=== PATIENT | female | born 1945 | race Two or more races ===

== ENCOUNTER 2018-12-31 12:58 | Emergency (ER) | payer OTHER, MEDICAID | END 2018-12-31 14:56 | disposition home or self-care (01) ==

== ENCOUNTER 2019-02-07 11:10 | Inpatient (IN) | payer OTHER, MEDICAID ==
--- NOTE | 2019-02-07 11:14 | EDPHY ---
HPI/HX/ROS/PE/MDM Narrative: CHIEF COMPLAINT: Abnormal labs at facility, reported hypoxemia HPI: This patient is a 73-year-old female with past medical history including Alzheimer's dementia, COPD, diabetes, hyperlipidemia, and hypertension. She arrives today via EMS from assisted living after staff reported her SpO2 had dropped to the 50s. She usually wears 3L O2 at all times for COPD. Hypoxemia was not observed by EMS and patient has maintained adequate oxygen saturations since their arrival. Staff also reported abnormal lab values, possibly a BNP around 630. Per EMS, vitals were within normal limits in transport. The patient did seem congested, and a DuoNeb was administered by facility this morning. The patient complains of complains of left calf pain radiating to her back. She denies any difficulty breathing more than usual. She has history of PE and takes daily ASA but is not otherwise anticoagulated. She is unable to answer some of my direct questions including whether she has had any dark tarry stools lately. She does not tell me any other complaints at this time. HPI somewhat limited due to patient's dementia, unable to answer some questions appropriately. REVIEW OF SYSTEMS: A comprehensive 10 system review of systems is otherwise negative aside from elements mentioned in the history of present illness and medical decision making. PMH: Dementia (risperidone), COPD (3L O2), diabetes type 2 (Metformin), hyperlipidemia (statin), hypokalemia, hypertension (Lisinopril), chronic pain, failure to thrive, PE SOCIAL HISTORY: Lives at [facility]. Retired. PHYSICAL EXAM: General:Patient is alert, in no acute distress. ENT:Eyes are normal to inspection. ENT inspection normal. Neck: Normal inspection. Full range of motion. Respiratory: Diffuse inspiratory and expiratory wheezes Cardiovascular: Regular rate and rhythm. Strong peripheral pulses. Normal cap refill. Abdomen:The abdomen is nontender to palpation. There are no peritoneal signs. There are normal bowel sounds. Back: Normal to inspection. No tenderness to palpation. Skin: Normal color. No rash. Warm and dry. Extremities: 2+ edema bilaterally. Full range of motion. Neuro: Oriented x3. Normal motor function. Normal sensory function. ED Course: 11:10 Met EMS on arrival 73 y/o female with PMH including COPD, dementia, hyperlipidemia, hypertension arrives for evaluation of reported hypoxemia and possible elevated BNP. She complains of her chronic back pain, but is otherwise asymptomatic. Vitals are within normal limits here in the emergency department, SpO2 is 95% on her usual 3L of oxygen. Plan for EKG, chest x-ray, labs including CBC, chemistries, BNP, POC troponin. Patient additionally complains of left calf pain radiating to her back. Plan for US LLE to r/o DVT. PMH reviewed including ED visit 12/31/18 for similar complaints - she was reportedly in respiratory distress by the facility, but had normal presentation and workup here in the emergency department. CXR available for comparison. 11:27 EKG was ordered and interpreted by myself. Please see iMER system for official reading. Sinus rhythm. 11:30 Reviewed laboratory results. POC troponin 0.14. Plan for laboratory troponin for comparison. WBC elevated at 45,000 ( compared to 10,000 one month ago). Patient is anemic, hematocrit of 28 (compared to 36 one month ago). BNP 970. Chest x-ray shows increased peribronchial thickening suggesting bronchitis vs less likely mild fluid overload. Increased right basilar opacity, could be related to worsening atelectasis or pneumonia. See radiologist report for details. 12:00 Plan for CTA chest. 12:[address] Cook, radiologist. US LLE is negative for DVT. Spoke with Dr. Piña, radiologist. CTA chest is negative for PE. Evidence of volume overload. Plan to admit for leukocytosis, anemia. 15:[address] Albert, hospitalist. He accepts admission. - Data Points Imaging Results: Imaging Impressions Chest X-Ray 02/07/19 11:13 Impression: Increased peribronchial thickening suggesting bronchitis or less likely mild fluid overload with increased right basilar opacity that could be related to worsening atelectasis or pneumonia Extremity Venous Study 02/07/19 12:00 Impression: No deep vein thrombosis in the left lower extremity. Results discussed with Dr. Dar Delgado 12:28 PM. Imaging: Discussed imaging studies w/ on call pharmacy technician Radiologist, I viewed and interpreted images myself Laboratory Results: Laboratory Results 02/07/19 11:10 02/07/19 11:10 02/07/19 02/07/19 02/07/19 12:10 11:21 11:10 WBC RBC Hgb Hct MCV MCH MCHC RDW Plt Count MPV Neut % (Auto) Lymph % (Auto) [place] % (Auto) Eos % (Auto) Baso % (Auto) Nucleat RBC Rel Count Absolute Neuts (auto) Absolute Lymphs (auto) Absolute Monos (auto) Absolute Eos (auto) Absolute Basos (auto) Absolute Nucleated RBC Immature Gran % Seg Neutrophils % Band Neutrophils % Lymphocytes % Monocytes % Eosinophils % Basophils % Metamyelocytes % Myelocytes % Promyelocytes % Blast Cells % Immature Gran # Absolute Seg Neuts Absolute Band Neuts Absolute Lymphocytes Absolute Monocytes Absolute Eosinophils Absolute Basophils Absolute Metamyelocyte Absolute Myelocytes Absolute Promyelocytes Absolute Plasma Cells Nucleated RBCs Absolute Blast Cells Plasma Cells % Platelet Estimate Polychromasia Oval Macrocytes Smear Review By Sodium 139 mEq/L mEq/L (135-145) Potassium 5.1 mEq/L mEq/L (3.5-5.2) Chloride 100 mEq/L mEq/L (97-110) Carbon Dioxide 36 mEq/l H mEq/l (22-31) Anion Gap 3 mEq/L L mEq/L (6-14) BUN 27 mg/dL H mg/dL (7-23) Creatinine 0.6 mg/dL mg/dL (0.6-1.0) Estimated GFR > 60 Glucose 92 mg/dL mg/dL (70-100) Calcium 8.5 mg/dL mg/dL (8.5-10.4) POC Troponin I 0.14 ng/mL H ng/mL (0.00-0.08) NT-Pro-B Natriuret Pep 970 pg/mL H pg/mL (0-125) Specimen Hemolysis 120 Patient ABO/Rh A POSITIVE Antibody Screen NEGATIVE 02/07/19 11:10 WBC 45.62 10^3/uL H 10^3/uL (3.80-9.50) RBC 2.68 10^6/uL L 10^6/uL (4.18-5.33) Hgb 9.0 g/dL L g/dL (12.6-16.3) Hct 28.1 % L % (38.0-47.0) MCV 104.9 fL H fL (81.5-99.8) MCH 33.6 pg pg (27.9-34.1) MCHC 32.0 g/dL L g/dL (32.4-36.7) RDW 14.0 % % (11.5-15.2) Plt Count 319 10^3/uL 10^3/uL (150-400) MPV 11.4 fL fL (8.7-11.7) Neut % (Auto) Not Reported Lymph % (Auto) Not Reported [place] % (Auto) Not Reported Eos % (Auto) Not Reported Baso % (Auto) Not Reported Nucleat RBC Rel Count Not Reported Absolute Neuts (auto) Not Reported Absolute Lymphs (auto) Not Reported Absolute Monos (auto) Not Reported Absolute Eos (auto) Not Reported Absolute Basos (auto) Not Reported Absolute Nucleated RBC Not Reported Immature Gran % Not Reported Seg Neutrophils % 8.9 % % Band Neutrophils % 2.0 % % Lymphocytes % 3.9 % % Monocytes % 3.0 % % Eosinophils % 82.2 % % Basophils % 0.0 % % Metamyelocytes % 0.0 % % Myelocytes % 0.0 % % Promyelocytes % 0.0 % % Blast Cells % 0.0 % % Immature Gran # Not Reported Absolute Seg Neuts 4.06 10^3/uL 10^3/uL (1.70-6.50) Absolute Band Neuts 0.91 10^3/uL H 10^3/uL (0.00-0.70) Absolute Lymphocytes 1.78 10^3/uL 10^3/uL (1.00-3.00) Absolute Monocytes 1.37 10^3/uL H 10^3/uL (0.30-0.80) Absolute Eosinophils 37.50 10^3/uL H 10^3/uL (0.03-0.40) Absolute Basophils 0.00 10^3/uL L 10^3/uL (0.02-0.10) Absolute Metamyelocyte 0.00 10^3/mL 10^3/mL (0.00-0.00) Absolute Myelocytes 0.00 10^3/mL 10^3/mL (0.00-0.00) Absolute Promyelocytes 0.00 10^3/uL 10^3/uL (0.00-0.00) Absolute Plasma Cells 0.00 10^3/uL 10^3/uL (0.00-0.00) Nucleated RBCs 0 /100 WBC /100 WBC (0-0) Absolute Blast Cells 0.00 10^3/uL 10^3/uL (0.00-0.00) Plasma Cells % 0.0 % % Platelet Estimate ADEQUATE (ADEQ) Polychromasia 1+ H Oval Macrocytes 1+ H Smear Review By Pending Sodium Potassium Chloride Carbon Dioxide Anion Gap BUN Creatinine Estimated GFR Glucose Calcium POC Troponin I NT-Pro-B Natriuret Pep Specimen Hemolysis Patient ABO/Rh Antibody Screen Point of Care Test Results: Chemistry 02/07/19 11:21 POC Troponin I 0.14 ng/mL H ng/mL (0.00-0.08) General Initial Vital Signs: Initial Vital Signs Heart Rate 88 02/07/19 11:15 Respiratory Rate 16 02/07/19 11:15 Blood Pressure 136/76 H 02/07/19 11:15 O2 Sat (%) 95 02/07/19 11:15 O2 Delivery Mode Nasal Cannula O2 (L/minute) 3 Allergies/Adverse Reactions: Opioids - Morphine Analogues Allergy (Verified 02/07/19 11:15) Home Medications: Medication Instructions Recorded Acetaminophen [Tylenol ES 500 mg 100 mg PO TID 12/31/18 (*)] Albuterol [Proventil Neb] 3 ml IH Q4HRS PRN 12/31/18 Aspirin [Aspirin 81mg (*)] 81 mg PO DAILY 12/31/18 Atorvastatin Calcium [Lipitor 40 40 mg PO DAILY 12/31/18 mg (*)] Citalopram Hydrobromide [celeXA 10 10 mg PO DAILY 12/31/18 MG] Lisinopril [Zestril 20 mg (*)] 20 mg PO DAILY 12/31/18 metFORMIN HCL [Glucophage 500 mg 250 mg PO DAILY 12/31/18 (*)] risperiDONE [Risperdal 1mg (*)] 1.5 mg PO DAILY 12/31/18 Docusate Sodium [Colace 100 MG (*)] 100 mg PO BID 02/07/19 Ipratropium/Albuterol [Duoneb (*)] 3 ml IH Q8HRS 02/07/19 Lidocaine 4%/Menthol 1% [Icy Hot 1 patch TD DAILY 02/07/19 Lidocaine/Menthol 4%/1% Patch (*)] Departure - Departure Disposition: [facility] Clinical Impression: Leukocytosis Qualifiers: Leukocytosis type: unspecified Qualified Code(s): D72.829 - Elevated white blood cell count, unspecified Anemia Qualifiers: Anemia type: unspecified type Qualified Code(s): D64.9 - Anemia, unspecified Condition: Fair Report Scribed for: Dar Delgado Report Scribed by: Kendy Salazar Date of Report: 02/07/19 Time of Report: 11:30 Physician Review and Approval Statement: Portions of this note were transcribed by an ED scribe. I personally performed the history, physical exam, and medical decision making; and confirm the accuracy of the information in the transcribed note.
[2019-02-07 11:31] LABS: PLATELET COUNT 319 10^3/uL (150-400)
[2019-02-07] MEDS ORDERED: IOPAMIDOL (ISOVUE 370) 100 ML BTL IV ONE (12:11)
[2019-02-07] MEDS ORDERED: ONDANSETRON DISINTEGRATING 4 MG TAB PO PRN (15:53)
[2019-02-07] MEDS ORDERED: ONDANSETRON 4 MG/2 ML VIAL IVP PRN (15:53)
--- NOTE | 2019-02-07 16:39 | PDCONSULT ---
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 She does not have historical information obtained from daughter that would suggest she would be at risk for parasitic infection. Although she has periodically been on prednisone for asthma and/or COPD diagnosis, Strongyloides hyper infection syndrome is typically associated with an absence or only a mild eosinophilia as the corticosteroids are pulled and suppressant of the eosinophilia stimulus. Her history of having lived in [place], although not the traditional Coccidioides geographic risk area, places her at low risk for having Coccidioides infection in reactivation, although again this is typically associated with a mild eosinophilia and a stimulus for reactivation is often immune suppression; corticosteroids would be expected to suppress this robust of any eosinophilic response. The development of eosinophilia is acute as her most recent normal eosinophil count was on 11/18/2018 and her 1st abnormal eosinophil count was seen on 2018. 1. 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 Dementia 7. History of asthma/COPD Plan: 1. No indication to send diagnostic testing for parasitic infections 2. When not initiate systemic antimicrobials at this time 3. Infectious diseases will follow Gaudencio Ramos MD Infectious Diseases Chief Complaint: Hypereosinophilia Requesting Provider: Dr. Albert Reason for Referral: Consultation was requested by Dr. Albert regarding antimicrobial management. HPI: 73-year-old woman who was sent to the hospital from her care home, [facility] in [place], due to critical lab value abnormalities with a white blood cell count of greater than 30,000 and an elevated BNP. Call to the care home staff not revealing of meaningful historical information, nurse on the floor uncertain of how long it has been since she has been treated with prednisone, but does know it has not been in the last few days. Discussion with patient's daughter over the phone reveals that the patient has had a poor appetite over the past few weeks but no other complaints. Patient states that she has had some chills and possibly fever but no night sweats. She has not had any rashes. She does state she has abdominal discomfort but not pain. No diarrhea associated with this abdominal discomfort. She primarily has chest discomfort over the center of her chest. No cough, arthralgias, myalgias. She states that her legs have been sore from the knees down but feels like this is chronic and related to swelling. She had a headache this morning but otherwise has not had headaches. States that there are no animals that visit the residence at her care home. Reviewed patient medical records in [facility], [place], and [facility] Travel history: Never traveled outside the [facility] Past Medical History: Dementia, asthma/COPD requiring supplemental oxygen support Past Surgical History: None stated Social History: Does not use tobacco products; Does not consume marijuana products; no alcohol use; Does not use any other drugs currently or in the past ; born and raised in the [facility]; lived in [facility] and [facility] for a total of a year more than 30 years ago Family History: Daughter recently diagnosed with cancer Allergies: No known antibiotic allergies Medications: Reviewed in medical record. ROS: 10 organ systems reviewed; pertinent positives and negatives listed in the HPI, all other organ systems negative. Physical Exam: VS: Reviewed Gen: No acute distress; Breathing comfortably with supplemental oxygen via nasal cannula; Able to speak in complete sentences Eyes: No conjunctival injection; No scleral icterus HENT: No gross deformities Neck: No limitation in range of motion Pulm: Audible inspiratory sounds to the bases bilaterally; No wheeze; diffuse rales CV: Normal S1 and S2, 3/6 systolic murmur and presence of gallop; Regular rate and rhythm; No rubs; mild to moderate bilateral lower extremity edema, pitting Abd: Not distended; Normo-active bowel sounds; Soft; Non-tender Skin: A full skin exam including exposed bilateral upper extremities, bilateral lower extremities to the knees, face, neck, abdomen, chest, and back performed; Skin intact, warm, with no rash MSK: Joints without erythema or edema; No gross limitation in range of motion; bilateral prosthetic knee replacement scars, intact Ext: No clubbing or cyanosis Neuro: Awake and alert; oriented to self, disoriented to location and day of week Psych: Normal mood and affect Labs/Imaging: All microbiology testing (culture and non-culture) reviewed in the medical record. Personally reviewed and interpreted the images of the following radiographs: Chest CT showing ground-glass opacity, primarily in the bilateral upper lobes with right-sided pleural effusion, left basilar infiltrates without consolidation. Laboratory Tests 02/07/19 02/07/19 02/07/19 11:10 11:10 11:10 WBC 45.62 H Hgb 9.0 L Plt Count 319 Absolute Seg Neuts 4.06 Absolute Band Neuts 0.91 H Absolute Monocytes 1.37 H Absolute Eosinophils 37.50 H Creatinine 0.6 NT-Pro-B Natriuret Pep 970 H Albumin 2.8 L Ongoing monitoring for antimicrobial toxicity with: CBC, BMP, interval historical information, and interval physical exam. [id number] time with patient: 65 minutes with >50% of [id number] time spent in counseling, patient education, and coordinating care. Counseling provided included the microbiology of infectious causes of eosinophilia, expected time to resolution, natural history without treatment, and side effects of treatment. Discussed with patient's daughter by telephone and obtained historical information. Discussed with patient's care home care team obtaining historical information.
--- NOTE | 2019-02-07 17:19 | GHP ---
[f rep st] HISTORY AND PHYSICAL DATE OF ADMISSION: 02/07/2019 CHIEF COMPLAINT: Sent in from [facility]. HISTORY OF PRESENT ILLNESS: This is a 73-year-old female, who resides at a [facility]. Per report, she was sent to the emergency department for further evaluation because they found her pulse ox to show 50%. Per EMS, as well as evaluation here, she has not been hypoxic. She tells me that she has had a cough recently. She feels short of breath chronically, she does not think worse. She notes that her legs seem to be more swollen recently than before. She has no real new neurologic symptoms that I can elicit including no incontinence. She has chronic weakness in her legs, which I do not believe is new, although history is overall difficult given her dementia. She has not traveled recently, and tells me that she has never been out of the country. She has lived her entire life in [place]. She has had no recent fevers, no overall change in her constitutional status. She reports no new rash. She does report some nasal congestion. She has some chronic nausea. No recent diarrhea or changes in stool. She reports no changes in her medications. PAST MEDICAL/SURGICAL HISTORY: 1. Alzheimer's. 2. COPD with chronic respiratory failure on 3 L of oxygen. 3. Hyperlipidemia. 4. Hypertension. 5. Chronic pain. 6. History of a pulmonary embolus. Now on aspirin. 7. Left TKA. 8. GERD. MEDICATIONS: Please see medication reconciliation. ALLERGIES: Morphine analogs. FAMILY HISTORY: Reviewed and noncontributory. SOCIAL HISTORY: She resides at a [facility], [place], although she did not recall this. She tells me she does not smoke currently and does not drink. REVIEW OF SYSTEMS: A 10-point review of systems is conducted and is negative except per HPI. PHYSICAL EXAM: VITAL SIGNS: Blood pressure 157/79, heart rate 83, respiration rate 20, saturating 96% on 3 L. Temperature is 36.8. GENERAL: Ms. Trimble is a pleasant female, who looks slightly uncomfortable, and is notably kyphotic. HEENT: Shows it to be normocephalic, atraumatic. CARDIOVASCULAR: Regular rate and rhythm. No murmurs, rubs, or gallops. She has 1 to 2+ bilateral lower extremity edema. PULMONARY: Shows bilateral rales, most prominent in the bases. ABDOMEN: Soft. She is tender to palpation in the left upper quadrant. She has no rebound or guarding tenderness. SKIN: Shows no rash. : No [place]. NEUROLOGIC: Shows her to be alert and oriented times approximately 3. EXTREMITIES: In her lower extremities, she has diminished strength throughout. It seems to be symmetric bilaterally. It seems to be somewhat limited by her back pain. PSYCHIATRIC: Shows normal mood and affect. LABS: White count is 45,000 with an absolute eosinophil count of 37,000, hemoglobin is 9, her MCV is 104, platelets are 319. INR is pending. LFTs are normal. Her bicarb is 36,000. BNP is 970. Troponin 0.14. Albumin is 2.8. DATA REVIEWED: 1. Discussed with doctors Jose Miguel Lerma, and Mina. 2. I reviewed her lower extremity ultrasound that shows no DVT. 3. I reviewed her CT angiogram of her chest. This shows pulmonary edema, possible left upper lobe infiltrate, multiple compression fractures with some spinal canal stenosis, no pulmonary embolus. 4. ECG shows sinus rhythm. She has left axis deviation. ASSESSMENT/PLAN: 1. Markedly eosinophilia: Given the degree of eosinophilia, this likely represents a primary myeloid process or a medication effect. However, also considered are eosinophilic myocarditis and pneumonia. 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 Hematology has been consulted and plans to do a bone marrow biopsy. Cardiology has been consulted, given her new congestive heart failure. I will order an echocardiogram and trend her troponins. Additional studies which I have ordered include an ANCA, immunoglobulins, respiratory PCR, tryptase, vitamin B12. She is currently clinically stable, thus I do not believe that emergent treatment is necessary. Treatment for all of her many hypereosinophilic syndromes is steroids and these could be considered emergently, however it would be best to obtain diagnostic studies prior. Infectious Disease will also evaluate her for potential parasitic infections, care would need to be given if there is any concern for Strongyloides in the setting of giving her high-dose steroids. I have ordered a CT abdomen to look for splenomegaly as she does have tenderness in the left upper quadrant. Dr. Boggs with pulmonology has been consulted as well, and he would like to perform a bronchoscopy tomorrow. Again, ideally, we will obtain all diagnostic studies prior to starting treatment, but if she becomes unstable at all, would have a low threshold to start steroids. 2. Multiple compression fractures. Given the clinical difficulty with her exam , I have ordered a lumbar spine MRI. 3. Dementia. This overall complicates her treatment. 4. Chronic obstructive pulmonary disease, chronic respiratory failure. Continue her on DuoNeb and home oxygen. 5. Diabetes mellitus. She is on metformin. I will hold this given that medications need to be considered in the etiology of this. 6. Chronic pulmonary embolus. Will start her on prophylaxis any and all procedures have been accomplished. 7. Code status. She has a MOLST form which shows full code. /[id number]/MODL MTDD
--- NOTE | 2019-02-07 17:23 | PDCARCONS ---
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 Chief Complaint: Brought to the emergency department for probable hypoxemia. Requesting Physician: Dr. Ricardo Albert. History of Present Illness: This is a 73-year-old female currently a detention resident due to advanced dementia who was brought to the emergency department when she was noted to be hypoxemic. On arrival to the emergency department she was apparently stable on her usual 3 liters/minute oxygen rate. As part of her workup in the emergency department a CBC was drawn. This indicated significant eosinophilia. The patient also had associated lower extremity edema and an abnormal chest x-ray with a brain atretic peptide of about 900 mg/dL. 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 In talking to the patient she states that she is not short of breath. She has no orthopnea. She denies chest pain or chest pressure. A history is, however, very difficult to obtain given her dementia. History Information - Allergies/Home Medication List Allergies/Adverse Reactions: Opioids - Morphine Analogues Allergy (Verified 02/07/19 11:15) Home Medications: Acetaminophen [Tylenol ES 500 mg (*)] 100 mg PO TID 12/31/18 [Last Taken Unknown ] Albuterol [Proventil Neb] 3 ml IH Q4HRS PRN 12/31/18 [Last Taken Unknown] Aspirin [Aspirin 81mg (*)] 81 mg PO DAILY 12/31/18 [Last Taken Unknown] Atorvastatin Calcium [Lipitor 40 mg (*)] 40 mg PO DAILY 12/31/18 [Last Taken Unknown] Citalopram Hydrobromide [celeXA 10 MG] 10 mg PO DAILY 12/31/18 [Last Taken Unknown] Lisinopril [Zestril 20 mg (*)] 20 mg PO DAILY 12/31/18 [Last Taken Unknown] metFORMIN HCL [Glucophage 500 mg (*)] 250 mg PO DAILY 12/31/18 [Last Taken Unknown] risperiDONE [Risperdal 1mg (*)] 1.5 mg PO DAILY 12/31/18 [Last Taken Unknown] Docusate Sodium [Colace 100 MG (*)] 100 mg PO BID 02/07/19 [Last Taken Unknown] Ipratropium/Albuterol [Duoneb (*)] 3 ml IH Q8HRS 02/07/19 [Last Taken Unknown] Lidocaine 4%/Menthol 1% [Icy Hot Lidocaine/Menthol 4%/1% Patch (*)] 1 patch TD DAILY 02/07/19 [Last Taken Unknown] I have personally reviewed and updated: family history, medical history, social history, surgical history Past Medical History: COPD with chronic hypoxemia, Alzheimer's disease, hyperlipidemia, hypertension, history of pulmonary hypertension prior pulmonary embolism, GERD. - Surgical History Reports: no pertinent surgical hx - Family History Positive for: non-pertinent - Social History Smoking Status: Former smoker Alcohol Use: None Drug Use: None Additional social history: She is a resident [facility]. Physical Exam Physical Exam: Temp Pulse Resp BP Pulse Ox 36.8 C 83 20 157/79 H 96 02/07/19 16:04 02/07/19 16:04 02/07/19 16:04 02/07/19 16:04 02/07/19 16:04 Constitutional: no apparent distress, appears nourished, not in pain Eyes: PERRL, anicteric sclera, EOMI Ears, Nose, Mouth, Throat: moist mucous membranes, hearing normal, ears appear normal, no oral mucosal ulcers Cardiovascular: regular rate and rhythym, systolic murmur (1/6 holosystolic murmur left sternal border), edema (1/2 inch pitting edema bilaterally in the lower extremities to the mid brewer), No JVD Peripheral Pulses: 2+: carotid (R), carotid (L) Respiratory: no respiratory distress, other (Diffuse rhonchorous breath sounds without rales) Gastrointestinal: normoactive bowel sounds, soft, non-tender abdomen, no palpable masses Genitourinary: no bladder fullness, no bladder tenderness Skin: warm, normal color, no rashes or abrasions, no fluctuance, no induration, No mottled Musculoskeletal: full muscle strength, no muscle tenderness, normal joint ROM, no joint effusions Psychiatric: interacting appropriately, not anxious, not encephalopathic, thought process linear Lymph, Heme, Immunologic: no cervical LAD, no supraclavicular LAD Lab and Imaging 02/08/19 03:50 02/08/19 03:50 WBC 45.62 10^3/uL (3.80-9.50) H 02/07/19 11:10 RBC 2.68 10^6/uL (4.18-5.33) L 02/07/19 11:10 Hgb 9.0 g/dL (12.6-16.3) L 02/07/19 11:10 Hct 28.1 % (38.0-47.0) L 02/07/19 11:10 MCV 104.9 fL (81.5-99.8) H 02/07/19 11:10 MCH 33.6 pg (27.9-34.1) 02/07/19 11:10 MCHC 32.0 g/dL (32.4-36.7) L 02/07/19 11:10 RDW 14.0 % (11.5-15.2) 02/07/19 11:10 Plt Count 319 10^3/uL (150-400) 02/07/19 11:10 MPV 11.4 fL (8.7-11.7) 02/07/19 11:10 Neut % (Auto) Not Reported 02/07/19 11:10 Lymph % (Auto) Not Reported 02/07/19 11:10 Todd % (Auto) Not Reported 02/07/19 11:10 Eos % (Auto) Not Reported 02/07/19 11:10 Baso % (Auto) Not Reported 02/07/19 11:10 Nucleat RBC Rel Count Not Reported 02/07/19 11:10 Absolute Neuts (auto) Not Reported 02/07/19 11:10 Absolute Lymphs (auto) Not Reported 02/07/19 11:10 Absolute Monos (auto) Not Reported 02/07/19 11:10 Absolute Eos (auto) Not Reported 02/07/19 11:10 Absolute Basos (auto) Not Reported 02/07/19 11:10 Absolute Nucleated RBC Not Reported 02/07/19 11:10 Immature Gran % Not Reported 02/07/19 11:10 Seg Neutrophils % 8.9 % 02/07/19 11:10 Band Neutrophils % 2.0 % 02/07/19 11:10 Lymphocytes % 3.9 % 02/07/19 11:10 Monocytes % 3.0 % 02/07/19 11:10 Eosinophils % 82.2 % 02/07/19 11:10 Basophils % 0.0 % 02/07/19 11:10 Metamyelocytes % 0.0 % 02/07/19 11:10 Myelocytes % 0.0 % 02/07/19 11:10 Promyelocytes % 0.0 % 02/07/19 11:10 Blast Cells % 0.0 % 02/07/19 11:10 Immature Gran # Not Reported 02/07/19 11:10 Absolute Seg Neuts 4.06 10^3/uL (1.70-6.50) 02/07/19 11:10 Absolute Band Neuts 0.91 10^3/uL (0.00-0.70) H 02/07/19 11:10 Absolute Lymphocytes 1.78 10^3/uL (1.00-3.00) 02/07/19 11:10 Absolute Monocytes 1.37 10^3/uL (0.30-0.80) H 02/07/19 11:10 Absolute Eosinophils 37.50 10^3/uL (0.03-0.40) H 02/07/19 11:10 Absolute Basophils 0.00 10^3/uL (0.02-0.10) L 02/07/19 11:10 Absolute Metamyelocyte 0.00 10^3/mL (0.00-0.00) 02/07/19 11:10 Absolute Myelocytes 0.00 10^3/mL (0.00-0.00) 02/07/19 11:10 Absolute Promyelocytes 0.00 10^3/uL (0.00-0.00) 02/07/19 11:10 Absolute Plasma Cells 0.00 10^3/uL (0.00-0.00) 02/07/19 11:10 Nucleated RBCs 0 /100 WBC (0-0) 02/07/19 11:10 Absolute Blast Cells 0.00 10^3/uL (0.00-0.00) 02/07/19 11:10 Plasma Cells % 0.0 % 02/07/19 11:10 Platelet Estimate ADEQUATE (ADEQ) 02/07/19 11:10 Polychromasia 1+ H 02/07/19 11:10 Oval Macrocytes 1+ H 02/07/19 11:10 Smear Review By Pillo GUAJARDO MD 02/07/19 11:10 PT REJ 02/07/19 11:10 INR REJ 02/07/19 11:10 Sodium 139 mEq/L (135-145) 02/07/19 11:10 Potassium 5.1 mEq/L (3.5-5.2) 02/07/19 11:10 Chloride 100 mEq/L (97-110) 02/07/19 11:10 Carbon Dioxide 36 mEq/l (22-31) H 02/07/19 11:10 Anion Gap 3 mEq/L (6-14) L 02/07/19 11:10 BUN 27 mg/dL (7-23) H 02/07/19 11:10 Creatinine 0.6 mg/dL (0.6-1.0) 02/07/19 11:10 Estimated GFR > 60 02/07/19 11:10 Glucose 92 mg/dL (70-100) 02/07/19 11:10 Calcium 8.5 mg/dL (8.5-10.4) 02/07/19 11:10 Total Bilirubin 0.5 mg/dL (0.1-1.4) 02/07/19 11:10 Conjugated Bilirubin 0.5 mg/dL (0.0-0.5) 02/07/19 11:10 Unconjugated Bilirubin 0.0 mg/dL (0.0-1.1) 02/07/19 11:10 AST 29 IU/L (14-46) 02/07/19 11:10 ALT 25 IU/L (9-52) 02/07/19 11:10 Alkaline Phosphatase 57 IU/L (38-126) 02/07/19 11:10 POC Troponin I 0.14 ng/mL (0.00-0.08) H 02/07/19 11:21 NT-Pro-B Natriuret Pep 970 pg/mL (0-125) H 02/07/19 11:10 Total Protein 7.0 g/dL (6.3-8.2) 02/07/19 11:10 Albumin 2.8 g/dL (3.5-5.0) L 02/07/19 11:10 Specimen Hemolysis 123 02/07/19 11:10 Patient ABO/Rh A POSITIVE 02/07/19 12:10 Antibody Screen NEGATIVE 02/07/19 12:10 Visualized and Interpreted Chest x-ray results: Yes Visualized and Interpreted imaging results: Yes Visualized and Interpreted EKG results: Yes EKG additional interpertation: Normal sinus rhythm. Low voltage in the limb leads. Telemetry: Normal sinus rhythm. Echocardiogram: There is a full and separately dictated report in the chart. A/P Assessment: This is a 73-year-old female admitted to the hospital with an initial diagnosis of hypoxemia. On review of the patient it turns out that she really is at her baseline with respect to her respiratory status. She has, however, developed a very profound eosinophilia. 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 In examining her, reviewing the radiographic studies and her echocardiogram, I do not think that there is any active evidence of congestive heart failure or myocarditis. Specifically, her echocardiogram was nearly normal including left ventricular free wall thickness and indices of diastolic function. She does have a very slight elevation in cardiac enzymes. This could be secondary to a nonischemic myocardial injury as a result of this as of yet undiagnosed inflammatory process. Plan: 1. She will be seen by pulmonology and Oncology. 2. Diuretics can be given to help maintain euvolemic. 3. I do not think she requires any further cardiovascular testing or therapies at the present time. 4. We will follow along peripherally.
[2019-02-07 17:33] LABS: INR 1.11 (0.83-1.16); PROTIME(PATIENT) 13.9 SEC (12.0-15.0)
[2019-02-07] MEDS ORDERED: LORazepam 2 MG/ML INJ IVP ONE (17:45)
--- NOTE | 2019-02-07 20:53 | ECHO ---
[email or web address] [address] [address] Main: [phone] Echocardiography Examination Transthoracic Name: LEDA BUI MR#: [id number] Study Date: 02/07/2019 Study Time: 08:18 PM Date of : 1945 Age: 73 year(s) Height: 149.9 cm (59 in.) Weight: 47.17 kg (104 lb.) BSA: 1.4 m2 Gender: Female Examination: Echo Contrast: Image Quality: Rhythm: Sinus tachycardia Heart Rate: 97 bpm BP: 157 mmHg/79 mmHg Indication: Elevated Troponins Procedure Staff Referring Physician: Civil Service Clerk: Juanjose Penn RDCS Reading Physician: Deni Paula MD Requesting Provider: Indication: Elevated Troponins Measurements Chambers AV/MV Label Value Normal Value Label Value Normal Value LVOT Vmax 1.1 m/s (0.7m/s - 1.1m/s) AV PGmax 13 mmHg LVOTd 1.9 cm (1.8cm - 2cm) AV PGmean 8 mmHg LVOT VTI 25.1 cm (18cm - 22cm) AV Vmax 1.79 m/s LVDd, 2D 4.2 cm (3.9cm - 5.3cm) CELENA (Vmax) 1.7 cm2 LVDs, 2D 2.6 cm (2.1cm - 4cm) CELENA (VTI) 2.2 cm2 IVSd, 2D 0.8 cm (0.6cm - 1.1cm) MV E Vmax 1.06 m/s LVPWd, 2D 0.9 cm MV A Vmax 1.11 m/s LVEF, 2D 67 % (54% - 74%) MV E/A 0.95 LVOT PGmean 2 mmHg MV E/E' lateral 9.7 LVOT Vmean 0.69 m/s MV E/E' septal 16.2 (0.45 - 1.25) RVDd, 2D 2.3 cm (1.9cm - 3.8cm) MV E' septal 0.07 m/s LA Volume, BP 36 ml (22ml - 52ml) MV E' lateral 0.11 m/s LADs, 2D 3.8 cm (2.7cm - 3.8cm) MV E/E' mean 11.78 LAESV index, BP 25.7 ml/m2 MV E' mean 0.09 m/s Additional Vessels TV/PV Label Value Normal Value Label Value Normal Value AoAsc 2.4 cm RA Pressure 5 mmHg AoRoot, MM 3 cm (2.2cm - 3.7cm) RVSP 50 mmHg TR Pmax 45 mmHg TR Vmax 3.34 m/s Patient: LEDA BIU Study Date: 02/07/2019 Page 1 of 2 08:18 PM PV PGmax 6 mmHg PV Vmax, Caliper 1.19 m/s (0.6m/s - 0.9m/s) Conclusions Overall Conclusions: Small pericardial effusion with no echo evidence of tamponade. Hypercontractile left ventricle without regional wall motion abnormalities. Elevated right ventricular systolic pressure 50 mm of mercury with mild tricuspid regurgitation. Findings Left Ventricle: Left ventricle is normal in size. Global hypercontractility of the left ventricle. Left ventricle wall thickness is normal. There are no regional wall motion abnormalities. Grade I Diastolic Dysfunction. Right Ventricle: Normal size right ventricle. Right ventricular systolic function is normal. Left Atrium: The left atrium is normal in size. Right Atrium: The right atrium is normal in size. Mitral Valve: Mitral valve appears structurally normal. No significant mitral regurgitation. No mitral valve stenosis. Aortic Valve: No significant aortic valve regurgitation. There is no aortic stenosis. Aortic leaflets exhibit mild calcification. Tricuspid Valve: Mild tricuspid regurgitation. Right Ventricular systolic pressure is measured at 50 mmHg. Pulmonary artery pressure is mildly increased. Pulmonic Valve: Pulmonic leaflets are normal in appearance and function. No pulmonic valve regurgitation is evident. Aorta: The aorta is normal. The aortic root size in M-mode measures 3.0 cm. The ascending aorta measures 2.4 cm. Aorta Measurements AoRoot, MM is 3.0 cm. Pericardium: A small pericardial effusion was identified. Echo findings are not consistent with tamponade physiology. Exam Details Procedure Ordered: Echo (No Signature Object) Patient: LEDA BUI Study Date: 02/07/2019 Page 2 of 2 08:18 PM [id number]
--- NOTE | 2019-02-07 21:20 | GCON ---
[f rep st] CONSULTATION HEMATOLOGY ONCOLOGY CONSULTATION REASON FOR CONSULTATION: Hypereosinophilia. HISTORY OF PRESENT ILLNESS: Sally Trimble is a very pleasant 73-year-old female referred from [facility], for what was initially felt to be hypoxia, and then found to have markedly elevated eosinophil count. EMS was called in [place] because of a low pulse ox reading of 50%; however, on arrival to the ER, she was not found to be hypoxic. However, in the emergency room, laboratory testing demonstrated a white blood cell count of 45.6 with a hematocrit of 28.1, and a platelet count of 319. Eosinophils represented 82% of the white blood cell count for an absolute eosinophilic count of 37,500. Absolute neutrophil count was 4. There was a slight elevation in the monocyte count, but no immature forms or blasts were identified. Of note, a month ago on December 31, the patient was seen in the emergency room with a white count of 10 , hematocrit of 36, and a platelet count of 229. The patient has a history of chronic dementia. By her history, she denies any new symptoms. She complains of left knee pain from a prior knee surgery and back pain, as well as chest discomfort. She has a wet cough, which she says has been chronic. She denies any rash. She denies any shortness of breath. She is unable to remember all of her children's names. She asked me what hospital she is in, and states that she believes it is 1965. There has been no international travel. Weight has reportedly been stable. She denies any night sweats or fevers. PAST MEDICAL HISTORY: 1. Dementia. 2. COPD, chronically on 3 L. 3. Hyperlipidemia. 4. Hypertension. 5. History of pulmonary embolus, on an aspirin. 6. Left total knee replacement. 7. GERD. FAMILY HISTORY: Noncontributory. SOCIAL HISTORY: She lives at [place]. She does not smoke or drink. REVIEW OF SYSTEMS: A 10-point review of systems was negative other than HPI. PHYSICAL EXAM: GENERAL: She is awake, comfortable appearing, lying in bed. VITAL SIGNS: Blood pressure 156/79, heart rate 83, O2 saturation is 96% on 3 L. She is afebrile. HEENT: Pupils are equal. Sclerae anicteric. LUNGS: With decreased breath sounds bilaterally. HEART: Regular rate. ABDOMEN: Soft , nontender. EXTREMITIES: Trace bilateral lower extremity edema. BREASTS: No masses. LYMPH: No cervical, supraclavicular, axillary adenopathy. LABORATORY DATA: See HPI. Chemistries notable for a creatinine of 0.6, bilirubin 0.5. Troponin of 0.2. B12 of 813. TSH 1.7. LFTs normal. IMPRESSION: This is a 73-year-old female with recent onset, within the last month, of hypereosinophilia. Also of note, the peripheral smear does not show immature forms or blasts. No dysplastic features are described. She is also more anemic than she was a month ago. The differential is broad and has been outlined in previous notes including infectious etiologies, allergic reactions, myeloid disorders, vasculitic syndromes such as Churg-Arielle, etc. Normally, a bone marrow biopsy would be part of the initial workup to exclude myeloid disorders. In speaking to the patient about this, it is clear to me that she is not able to give informed consent. I contacted her daughter, Jovana, who lives in [place], and is her medical power of document review attorney. Jovana tells me that both her and her daughter Maya have medical decision-making power for her mother. I reviewed with Jovana that I believe a bone marrow biopsy could be done in a painless way with sedation. However, the question remains what would be found on a bone marrow biopsy that would be appropriate to treat given her level of dementia and debilitation. Jovana emphasizes that she does not want her mother to "suffer." She also stated that her mother's wishes are to be a DNR. I am not clear whether or not she is having symptoms related to the hypereosinophilia. The one symptom of chest pain could potentially be related to that and cardiology has been consulted, and an echocardiogram is pending. She has a wet cough and CT scan does show pulmonary infiltrates, raising the possibility of eosinophilic pneumonitis. After discussing the situation with Jovana, we decided to move forward with the workup as best we could with blood work. Will send blood for flow cytometry to try to determine whether or not there is a clonal process underlying the eosinophilia. We can send FISH for platelet derived growth factor receptor rearrangements and FGFR receptors. In addition, BCR-ABL and JAK2 will be sent. Peripheral blood flow cytometry can also be sent for T-cell and B cell subtypes and T-cell gene rearrangements. We discussed that if the diagnosis cannot be made with peripheral blood testing , then we can revisit the pros and cons of the bone marrow biopsy. At the end of our conversation, all of Jovana's questions were answered. She is going to be talking to her sister, Maya, tomorrow. /[id number]/MODL MTDD
[2019-02-07] MEDS: IPRATROPIUM/ALBUTEROL 3 ML DEYVIAL IH SCH (21:48)
--- NOTE | 2019-02-07 21:56 | HOSPPROG ---
Hospitalist Progress Note Assessment/Plan: Discussed with dtr who previously signed her MOST form. She is the MDPOA and would prefer DNR so that her mother doesn't suffer. Order changed. Objective: Vital Signs Temp Pulse Resp BP Pulse Ox 36.6 C 92 16 123/66 H 91 L 02/07/19 20:00 02/07/19 20:42 02/07/19 20:42 02/07/19 20:00 02/07/19 20:42 02/06/19 02/07/19 02/08/19 05:59 05:59 05:59 Intake Total 120 Balance 120 PT 13.9 SEC (12.0-15.0) 02/07/19 17:10 INR 1.11 (0.83-1.16) 02/07/19 17:10 ICD10 Worksheet Patient Problems: Problems Problem Status Onset Leukocytosis Acute Anemia Acute
[2019-02-07] MEDS ORDERED: IPRATROPIUM/ALBUTEROL 3 ML DEYVIAL IH SCH (22:00)
[2019-02-07] MEDS ORDERED: AZITHROMYCIN IV 500 MG in NS 250 ML IV SCH ×2 (22:00→22:30)
[2019-02-08] MEDS: IPRATROPIUM/ALBUTEROL 3 ML DEYVIAL IH SCH ×6 (01:39→22:04)
[2019-02-08] MEDS: ACETAMINOPHEN 500 MG TAB PO PRN ×2 (04:13→17:06)
[2019-02-08 04:25] LABS: PLATELET COUNT 324 10^3/uL (150-400)
--- NOTE | 2019-02-08 08:51 | PDMN ---
Medical Necessity Medical necessity: Pt meets IP criteria per & MCG MG-HEM Hematology; est los >2 mn for eval/tx of severe eosinophilia w/new-onset CHF & multiple compression fxs; admit for further workup/monitoring & Hematology/Cardiology/ID/Pulmonology consults; comorbid advanced age, dementia, COPD; per H&P & order 02/07/19
[2019-02-08] MEDS ORDERED: ENOXAPARIN 40 MG/0.4 ML SYR SC SCH (09:00)
[2019-02-08] MEDS ORDERED: risperiDONE 1 MG TAB PO SCH (09:00)
--- NOTE | 2019-02-08 09:21 | ASMTLACE ---
TERRIE Acuity / Level of Answers: Yes Care: Did the patient have an inpatient admission? Comorbidities - select Answers: Chronic pulmonary disease all that apply Dementia Diabetes (uncontrolled or controlled) Opioid dependence / Chronic pain Other Notes: HLD; HTN; PE # of Emergency department Answers: 1-2 visits in the last 6 months Score: 15 Date Signed: 02/08/2019 09:21 AM Electronically Signed By:Kelsey Murphy
[2019-02-08] MEDS: LIDOCAINE 4%/MENTHOL 1% PATCH TD SCH (10:14)
--- NOTE | 2019-02-08 10:19 | SOAPPROG ---
SOAP Progress Note Assessment/Plan: Assessment: 73-year-old female admitted to the hospital with initially concerns regarding possible hypoxemia. Subsequently she has been found to have profound leukocytosis and eosinophilia. 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 After review of the available data, currently, there is no indication of a cardiac involvement in this eosinophilic syndrome. Specifically, her exam does not suggest a diagnosis of congestive heart failure , her brain atretic peptide while elevated is only mildly elevated, her echocardiogram does not suggest any features of myocarditis and her ECG is entirely normal. Her CT scan demonstrates findings most consistent with bilateral pneumonia. She did have a slight troponin elevation in the absence of chest discomfort and ECG changes. I think this is likely inflammatory mediated in the setting of her eosinophilic pneumonia. Plan: 1. I have ordered an ECG to be done today. 2. We will continue to trend her cardiac enzymes. 3. No indication at the present time for further cardiovascular testing or therapies. 4. We will follow peripherally. 02/08/19 10:14 Subjective: No clinical change overnight. I reviewed the medical records. Today, she specifically denies symptoms of dyspnea and anginal quality chest discomfort. She had an emergent echocardiogram done yesterday evening which I personally reviewed. This was essentially a normal study with a normal ejection fraction, normal left ventricular free wall thickness, no regional wall motion abnormalities and normal diastolic parameters. There was a very small pericardial effusion noted. Objective: Vital Signs Temp Pulse Resp BP Pulse Ox 36.7 C 90 18 130/59 H 100 02/08/19 08:00 02/08/19 09:40 02/08/19 09:40 02/08/19 08:00 02/08/19 09:40 Laboratory Results 02/08/19 03:50 02/08/19 03:50 02/07/19 02/08/19 02/09/19 05:59 05:59 05:59 Intake Total 445 Balance 445 PT 13.9 SEC (12.0-15.0) 02/07/19 17:10 INR 1.11 (0.83-1.16) 02/07/19 17:10 Physical Exam - Physical Exam General Appearance: no apparent distress, thin Neck: non-tender, full range of motion Respiratory: other (Diffuse rhonchorous breath sounds) Cardiac/Chest: normal peripheral pulses, regular rate, rhythm, edema (Trace), No gallop, No JVD, No tachycardia Peripheral Pulses: 2+: carotid (R), carotid (L) Abdomen: non-tender, soft Pelvic Exam: deferred Rectal: deferred ICD10 Worksheet Patient Problems: Problems Problem Status Onset Anemia Acute Leukocytosis Acute
[2019-02-08] MEDS ORDERED: IOPAMIDOL (ISOVUE-300) 100 ML BTL ONE (10:24)
--- NOTE | 2019-02-08 11:54 | ASMTCMCOM ---
CM Note CM Note Notes: 02/08/2019 Case Management Note Discussed in rounds. Pt admitted for elevated troponin. Pt to have CT of abdomen today. Pt has history of dementia. Pt resides at [facility]. Faxed updates via [employer] and discussed w/Lana from [employer] [phone]. Requested MDPOA paperwork from [place]. Lana provided copy of MDPOA from [facility] that indicates pt daughter Jovana Trimble is Alternate #1 [facility] [phone]. Pt daughter Maya Trimble [phone] is alternate #2. Case Management d/c poc: return to [facility] Case Management to follow. Date Signed: 02/08/2019 11:54 AM Electronically Signed By:Mary Carmona RN
--- NOTE | 2019-02-08 13:59 | HOSPPROG ---
Hospitalist Progress Note Assessment/Plan: DIAGNOSES: * Acute respiratory illness with cough and dyspnea, intermittent hypoxemia * Chest abnormalities on CT scan include mosaic pattern ground-glass opacities in the upper lobes of both lungs and a moderate right pleural effusion * Severe eosinophilia 37,000 with macrocytosis and normal red cell distribution width; appears of new onset * History of COPD chronic hypoxemic respiratory failure * Pulmonary hypertension is present, uncertain chronicity * History of hypertension * Chronic back pain with osteoporotic compression fractures and also with disc disease causing neural impingement * History of remote pulmonary embolus I reviewed her CT scan in detail. The mosaic pattern ground-glass opacities have a very broad differential diagnosis including postviral, small airway disease of various sorts, hypersensitivity pneumonitis (though central lobular nodules are not seen), pulmonary hypertension and wide range of other issues. Mixing this broad list with the possible causes of such severe eosinophilia does not lead directly to any specific diagnosis. I agree that pursuing the possibility of some type of hematologic illness makes good sense at this time. I have not yet met directly the family but it sounds, from talking to our staff today, that they are not interested in having her get aggressive diagnostic procedures at this time at least not until easier measures are attempted. PLANS: * Continue duo nebs on schedule * Will add a flutter valve device * At this time will add some prednisone * Continue Rocephin and azithromycin * Dr. Enriquez hold his ordered a range of serologic tests for diagnostic purposes , will await for results of those * Continue to hold metformin as she had IV contrast * Fall risk precautions * Will place her on DVT prophylaxis at this point as we will not be doing bronchoscopy or bone marrow biopsy at this time Seen by me today on hospitalist rounds as well as multidisciplinary rounds I reviewed in detail today with doctors Piter Gillespie and Gaudencio Boggs SUBJECTIVE: Complains of ongoing cough and dyspnea, very weak No new discomforts or other problems, is eating well OBJECTIVE Vitals reviewed: All stable without fever Oxygen needs are variable but is getting by with nasal cannula 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, 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: Sinus Exam: alert moderately anxious but in no physical distress skin warm dry color ok resps not labored lungs some minimal fine rales upper lungs otherwise clear BSs heart regular 1/6 systolic murmur abd soft nondistended nontender, bowel sounds present limbs warm, mild bipedal edema iv site ok ECHOCARDIOGRAM: Hyper contractile left ventricle with normal wall motion, pulmonary hypertension is present at 50 and mild TR LAB DATA: Eosinophils remain very elevated 29,000 Macrocytic anemia hemoglobin 8.3 persists, platelets normal Basic metabolic panel stable Troponin remains minimally elevated 0.4 Transaminases normal Elevated IgE at 361 with other Ig studies pending Other serologic tests all pending IMAGING STUDIES: I reviewed her CT scan images of the chest from yesterday and there is a mosaic pattern ground-glass opacity in both lungs in the upper apices that is moderately extensive. There is also a right pleural effusion I reviewed the images from her CT abdomen today: There are no acute or concerning intra-abdominal abnormalities. The same spine and lung abnormalities are seen compared to yesterday studies Objective: Vital Signs Temp Pulse Resp BP Pulse Ox 36.9 C 100 20 129/65 H 95 02/08/19 12:00 02/08/19 12:00 02/08/19 12:00 02/08/19 12:00 02/08/19 12:00 Laboratory Results 02/08/19 03:50 02/08/19 03:50 02/07/19 02/08/19 02/09/19 06:59 06:59 06:59 Intake Total 445 Balance 445 PT 13.9 SEC (12.0-15.0) 02/07/19 17:10 INR 1.11 (0.83-1.16) 02/07/19 17:10 - Time Spent With Patient Time Spent with Patient: greater than 35 minutes Time Spent with Patient: Greater than 35 minutes spent on this patients care, greater than 50% of time spent counseling, educating, and coordinating care regarding the above mentioned plan. ICD10 Worksheet Patient Problems: Problems Problem Status Onset Anemia Acute Leukocytosis Acute
--- NOTE | 2019-02-08 14:12 | SOAPPROG ---
SOAP Progress Note Assessment/Plan: A/P: * Eosinophilia: marked with associated large platelets on per smear, new since early December. Suspicious for underling bone marrow process (MDS/MPD). Pursuing peripheral blood work up rather than bmbx due to advanced dementia and family's wishes to avoid aggressive workup/tx. No organomegaly or LAD. - workup in process * Hypoxia, pulm infiltrates: chronic O2 requirement (3L) and CPOD dx, no prior imaging available. Cardiology does not feel there is cardiac involvement. * Advanced dementia: daughters are MPOA, DNR. 02/08/19 14:16 Subjective: No complaints. Sitting in chair watching TV. O: VS reviewed. Adeq O2 on 4L. Gen: elderly woman in NAD. CV: no edema. Lungs: bilat crackles. Abd: soft, NT. Laboratory Tests 02/08/19 02/08/19 03:50 03:50 WBC 41.43 H Hgb 8.3 L MCV 106.8 H Plt Count 324 Seg Neutrophils % 24.5 Band Neutrophils % 0.0 Lymphocytes % 3.0 Monocytes % 2.5 Eosinophils % 70.0 Basophils % 0.0 Metamyelocytes % 0.0 Myelocytes % 0.0 Promyelocytes % 0.0 Blast Cells % 0.0 Absolute Eosinophils 29.00 H Sodium 140 Potassium 4.4 Chloride 100 Carbon Dioxide 35 H Anion Gap 5 L BUN 16 Creatinine 0.6 Glucose 67 L Total Bilirubin 0.3 AST 23 ALT 27 Alkaline Phosphatase [address]: no HSM, no LAD. Objective: Vital Signs Temp Pulse Resp BP Pulse Ox 36.9 C 100 20 129/65 H 95 02/08/19 12:00 02/08/19 12:00 02/08/19 12:00 02/08/19 12:00 02/08/19 12:00 Laboratory Results 02/08/19 03:50 02/08/19 03:50 02/07/19 02/08/19 02/09/19 05:59 05:59 05:59 Intake Total 445 Balance 445 PT 13.9 SEC (12.0-15.0) 02/07/19 17:10 INR 1.11 (0.83-1.16) 02/07/19 17:10 ICD10 Worksheet Patient Problems: Problems Problem Status Onset Anemia Acute Leukocytosis Acute
--- NOTE | 2019-02-08 15:07 | GCON ---
[f rep st] CONSULTATION PULMONARY CONSULTATION DATE OF CONSULTATION: 02/08/2019 HISTORY OF PRESENT ILLNESS: This patient is a 73-year-old female living in a assisted, who was i n the emergency department for reported hypoxemia. However, EMS was called and she was normoxic on h er regular oxygen of 3 L/minute. She did report a cough, but has a history of dementia and historica l details have been difficult. She was complaining of lower extremity pain, particularly in her left lower extremity, for which a lidocaine patch was placed. She also was in the emergency room several weeks ago with a similar problem that resolved spontaneously on its own. Most notably, however, dur ing the initial ER visit a month ago, she did not have substantial eosinophilia. However, on this ad mission, she has greater than 37,000 absolute eosinophils with overall white count of 45,000. She lee s been seen by Hematology, who is suspicious of a primary eosinophilic leukemia. Today, she said vicky t her breathing was unchanged and not terribly bothersome, though she did report the cough without he moptysis. She has had no travel and no history of asthma. No specific allergies other than morphine , which she has not gotten. There is no new rash, but she does have some nasal congestion. REVIEW OF SYSTEMS: Otherwise, negative. PAST MEDICAL HISTORY: Includes: 1. Reported COPD with hypoxemia. 2. Alzheimer's. 3. Hyperlipidemia. 4. Hypertension. 5. Pulmonary embolism in the past. 6. Left total knee arthroplasty. 7. Gastroesophageal reflux disease. SOCIAL HISTORY: She is a former smoker, but not currently. Lives at [facility]. FAMILY HISTORY: Noncontributory. MEDICATIONS: At this time, include Tylenol, DuoNeb, azithromycin, ceftriaxone, lidocaine patch. PHYSICAL EXAM: VITAL SIGNS: She was afebrile. Blood pressure 129/65, heart rate of 100, respirator y rate 20, oxygen saturation 95% on 4 L. GENERAL: She was awake and alert, in no apparent distress and able to speak in full sentences without using accessory muscles for breathing. HEENT: Pupils eq ually round and reactive to light. Nonicteric and noninjected. Mucous membranes are moist without e rythema or exudate. NECK: Supple without adenopathy. No jugular vein distention. LUNGS: Breath s ounds revealed bilateral crackles, but no wheezes and great air exchange. HEART: Had a regular rate and rhythm without murmurs, rubs, or gallops. ABDOMEN: Soft, nontender, and nondistended without h epatosplenomegaly. EXTREMITIES: Show trace edema bilaterally, but no rashes. A lidocaine patch was on her left lower extremity. NEUROLOGIC: Nonfocal including cranial nerves and deep tendon reflexe s. SKIN: Warm and dry without evidence of rash. OBJECTIVE DATA: Includes her admission white count of 45.6, hematocrit 28, platelets of 319, 82% of which were eosinophils with an absolute eosinophil count of 37,500. Coags were normal. Basic metabo lic panel was unremarkable. Liver function tests were normal. Troponin was slightly elevated at 0.1 4, now 0.49. BNP was 970. Albumin was 2.8 on arrival. B12 was normal. IgE was 361, which is marke dly elevated. C-ANCA and P-ANCA are pending as are a number of other studies. A chest CT scan is described with diffuse bilateral ground-glass infiltrates very prominent in the ap ices, but not in a peripheral distribution. There was no traction bronchiectasis and no masses, thou gh there was some perihilar consolidation. It also showed several severe compression fractures at T1 1 and L1-L2. ASSESSMENT AND PLAN: Abnormal CT scan. It is difficult to know exactly what this means. It could mean pulmonary edema as Radiology suggests , though she has been seen by Cardiology, who was underwhelmed. It could also represent pulmonary in filtration of her severe eosinophilia, which I think is very likely. According to notes from Oncolog y, the family is advocating a more conservative approach and they are trying to make their diagnoses based on peripheral smears rather than a bone marrow biopsy. An alternative to that would be to do a bronchoscopy with bronchoalveolar lavage looking for eosinophil counts then. I think this is more i nvasive and not likely in line with their wishes. At this point, we will wait to see what Oncology p roduces from their workup prior to proceeding with a more invasive procedure. Her clinical presentat ion, though acute, is not consistent with acute eosinophilic pneumonia, which often presents with mor e severe hypoxic respiratory failure and only modest increases in eosinophil count. The radiographic appearance does not look like chronic eosinophilic pneumonia, but the clinical picture could be cons istent with eosinophilic granulomatosis, otherwise known as Churg-Arielle syndrome, which would be re sponsive to steroids. ANCA studies are currently pending at this time. I will continue to follow. /[id number]/MODL
--- NOTE | 2019-02-08 16:03 | PCMIDPN ---
Assessment/Plan: Assessment/Plan: * Hyper eosinophilia: Most likely associated with bone marrow disorder. Agree with Dr. Ramos that parasitic etiology unlikely. Hematology notes reviewed with plans for noninvasive diagnosis based on family request. Pulmonary infiltrates present on CT scan most likely related to hyper eosinophilia rather than infection. Will therefore discontinue ceftriaxone and azithromycin. Plan observation off antibiotics while awaiting additional diagnostic information. Time spent, greater than 35 min, of which greater than half was spent in coordination of care related to hypereosinophilia and plan of care. Clinical findings and plan were reviewed with nursing staff and Dr. Blackman with plans to discontinue antibiotic therapy as outlined above. Imaging reviewed by me with Radiology today. 02/08/19 15:57 02/08/19 16:03 Subjective: Patient complains of being hungry. Nursing staff notes patient with frequent wet sound in cough. Dr. Ramos' consultation from 02/07/2019 reviewed. Objective: Vital Signs Temp Pulse Resp BP Pulse Ox 36.2 C 102 H 20 116/56 L 94 02/08/19 15:14 02/08/19 15:14 02/08/19 15:14 02/08/19 15:14 02/08/19 15:14 Laboratory Results 02/08/19 03:50 02/08/19 03:50 02/07/19 02/08/19 02/09/19 05:59 05:59 05:59 Intake Total 445 Balance 445 Ceftriaxone # 2 Azithromycin # 2 Respiratory pathogen panel by PCR testing negative CT scan of chest showing patchy ground-glass opacities primarily peripherally; right basilar effusion with compressive atelectasis present Absolute eosinophil count 29,000 - Physical Exam General Appearance: alert, no apparent distress EENT: No scleral icterus, No conjunctival petechiae Respiratory: other (Bilateral crackles present) Cardiac/Chest: tachycardia Abdomen: non-tender, No distended Skin: No embolic lesions ICD10 Worksheet Patient Problems: Problems Problem Status Onset Anemia Acute Leukocytosis Acute
--- NOTE | 2019-02-08 17:50 | CPEKG ---
Test Reason : OPEN Blood Pressure : / mmHG Vent. Rate : 097 BPM Atrial Rate : 097 BPM P-R Int : 139 ms QRS Dur : 083 ms QT Int : 334 ms P-R-T Axes : 051 -40 056 degrees QTc Int : 425 ms Sinus rhythm Left axis deviation Low voltage, precordial leads Confirmed by Deni Paula ([id number]) on 02/08/2019 5:49:46 PM Referred By: Ricardo Albert Confirmed By:Deni Paula
[2019-02-08] MEDS ORDERED: predniSONE 20 MG TAB PO ONE (19:50)
[2019-02-08] MEDS: PATCH REMOVAL 1 EA PATCH TD SCH (20:49)
[2019-02-08] MEDS ORDERED: AZITHROMYCIN IV 500 MG in NS 250 ML IV SCH (21:00)
[2019-02-09] MEDS: IPRATROPIUM/ALBUTEROL 3 ML DEYVIAL IH SCH ×6 (02:35→22:44)
[2019-02-09] MEDS: predniSONE 20 MG TAB PO SCH ×2 (09:29→18:08)
[2019-02-09] MEDS: ACETAMINOPHEN 500 MG TAB PO PRN ×2 (09:29→21:39)
[2019-02-09] MEDS: LIDOCAINE 4%/MENTHOL 1% PATCH TD SCH (09:30)
[2019-02-09] MEDS: CITALOPRAM 20 MG TAB PO SCH (11:49)
--- NOTE | 2019-02-09 12:42 | PCMIDPN ---
Assessment/Plan: Assessment/Plan: * Hypereosinophilia: Most likely non infectious etiology with bone marrow disorders being primary etiologic concern. 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 Less likely would be of infectious etiology such as atypical pneumonia. Plan continued observation off antibiotic therapy and await hematologic evaluation with hopes of defining etiology for hyper eosinophilia. Clinical findings and plan were reviewed with nursing staff at time of my rounds today. 02/09/19 12:38 Subjective: Patient sitting up in chair without specific complaints. No interval clinical changes other than mild increase in oxygen from 4 L to 5 L. Objective: Vital Signs Temp Pulse Resp BP Pulse Ox 37.0 C 78 26 H 140/80 H 100 02/09/19 08:00 02/09/19 10:05 02/09/19 10:05 02/09/19 08:00 02/09/19 10:05 Laboratory Results 02/08/19 03:50 02/08/19 03:50 02/08/19 02/09/19 02/10/19 05:59 05:59 05:59 Intake Total 445 240 Balance 445 240 No antibiotic therapy Temperature 37.0 degrees - Physical Exam General Appearance: alert, no apparent distress, non-toxic EENT: No scleral icterus, No conjunctival petechiae Respiratory: crackles (Bilateral with less prominence versus yesterday) Cardiac/Chest: regular rate, rhythm Extremities: No inflammation Abdomen: non-tender, No distended ICD10 Worksheet Patient Problems: Problems Problem Status Onset Anemia Acute Leukocytosis Acute
--- NOTE | 2019-02-09 14:45 | HOSPPROG ---
Hospitalist Progress Note Assessment/Plan: DIAGNOSES: * Acute respiratory illness with cough and dyspnea, intermittent hypoxemia * Chest abnormalities on CT scan include mosaic pattern ground-glass opacities in the upper lobes of both lungs and a moderate right pleural effusion * Severe eosinophilia 37,000 with macrocytosis and normal red cell distribution width; appears of new onset * History of COPD chronic hypoxemic respiratory failure * Pulmonary hypertension is present, uncertain chronicity * History of hypertension * Chronic back pain with osteoporotic compression fractures and also with disc disease causing neural impingement * History of remote pulmonary embolus I reviewed her CT scan in detail. The mosaic pattern ground-glass opacities have a very broad differential diagnosis including postviral, small airway disease of various sorts, hypersensitivity pneumonitis (though central lobular nodules are not seen), pulmonary hypertension and wide range of other issues. Mixing this broad list with the possible causes of such severe eosinophilia does not lead directly to any specific diagnosis. I agree that pursuing the possibility of some type of hematologic illness makes good sense at this time. I have not yet met directly the family but it sounds, from talking to our staff today, that they are not interested in having her get aggressive diagnostic procedures at this time at least not until easier measures are attempted. PLANS: * Continue duonebs on schedule * Will add a flutter valve device * Continue prednisone and follow for respiratory response * Continue observe off antibiotics * Dr. Enriquez hold his ordered a range of serologic tests for diagnostic purposes , will await for results of those * Continue to hold metformin as she had IV contrast * Other medicines being held for possible influence on eosinophilia and for lack of obvious benefit at the moment include lisinopril, Lipitor * Fall risk precautions * Will place her on DVT prophylaxis at this point as we will not be doing bronchoscopy or bone marrow biopsy at this time Seen by me today on hospitalist rounds as well as multidisciplinary rounds I reviewed in detail today with doctors Piter Gillespie and Gaudencio Boggs SUBJECTIVE: Patient asleep as I walk into the room, when I 1st wake her up and ask her how things are going she says every things fine and she thinks her cough is better. Immediately after stating this she has a large coughing spell and tells me that she thinks her cough is worse. 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: Sinus Exam: alert more relaxed today, less talkative but just woke from nap skin warm dry color ok resps not labored lungs some slightly coarse breath sounds particularly in upper lungs heart regular 1/6 systolic murmur abd soft nondistended nontender, bowel sounds present limbs warm, less bipedal edema iv site ok ECHOCARDIOGRAM: Hyper contractile left ventricle with normal wall motion, pulmonary hypertension is present at 50 and mild TR LAB DATA: IgG 2430, IgA 384, IgE 360 ANCAs negative All other serologic studies pending at this time IMAGING STUDIES: I reviewed her CT scan images of the chest from yesterday and there is a mosaic pattern ground-glass opacity in both lungs in the upper apices that is moderately extensive. There is also a right pleural effusion I reviewed the images from her CT abdomen today: There are no acute or concerning intra-abdominal abnormalities. The same spine and lung abnormalities are seen compared to yesterday studies Objective: Vital Signs Temp Pulse Resp BP Pulse Ox 36.9 C 87 14 138/74 H 97 02/09/19 12:00 02/09/19 12:00 02/09/19 12:00 02/09/19 12:00 02/09/19 12:00 Laboratory Results 02/08/19 03:50 02/08/19 03:50 02/08/19 02/09/19 02/10/19 06:59 06:59 06:59 Intake Total 445 240 Balance 445 240 PT 13.9 SEC (12.0-15.0) 02/07/19 17:10 INR 1.11 (0.83-1.16) 02/07/19 17:10 ICD10 Worksheet Patient Problems: Problems Problem Status Onset Anemia Acute Leukocytosis Acute
--- NOTE | 2019-02-09 16:12 | PDINTPN ---
[facility] Progress Note Assessment/Plan: 73 F admitted with reported hypoxia, not found by EMS or ED, but found to have profound eosinophilia new from several weeks ago. Her workup included a chest CTA based on a history of PE but revealed diffuse bilateral infiltrates especially uper lobes with a right effusion. She has been seen by oncology, who suggested a BM biopsy but family members wanted only a non-invasive workup. * Abnormal CT- I suspect this represents eosinophilic infiltrate which may improve with steroids while her heme workup is underway. Not certain what the significance is of her elevated IgE- she has no new allergies/exposures and no history of asthma. ABPA is unlikely given lack of asthma or CF. * COPD/hypoxia- she is at her baseline O2 requirement. * will follow. Subjective: no events Objective: Vital Signs Temp Pulse Resp BP Pulse Ox 36.8 C 94 11 L 122/57 H 98 02/09/19 15:46 02/09/19 15:46 02/09/19 15:46 02/09/19 15:46 02/09/19 15:46 Laboratory Results 02/08/19 03:50 02/08/19 03:50 02/08/19 02/09/19 02/10/19 05:59 05:59 05:59 Intake Total 445 240 Balance 445 240 PT 13.9 SEC (12.0-15.0) 02/07/19 17:10 INR 1.11 (0.83-1.16) 02/07/19 17:10 Physical Exam - Physical Exam General Appearance: alert, no apparent distress EENT: PERRL/EOMI Neck: supple Respiratory: decreased breath sounds, No respiratory distress, No accessory muscle use, No wheezing Cardiac/Chest: regular rate, rhythm, No edema Abdomen: non-tender, soft, No distended Skin: normal color, warm/dry, No cyanosis Lymphatic: no adenopathy Extremities: No pedal edema Neuro/Psych: alert, normal mood/affect, cognition abnormalities ICD10 Worksheet Patient Problems: Problems Problem Status Onset Anemia Acute Leukocytosis Acute
[2019-02-09] MEDS: PATCH REMOVAL 1 EA PATCH TD SCH (21:39)
[2019-02-10] MEDS: IPRATROPIUM/ALBUTEROL 3 ML DEYVIAL IH SCH ×6 (02:00→21:31)
[2019-02-10 04:04] LABS: PLATELET COUNT 286 10^3/uL (150-400)
[2019-02-10] MEDS: CITALOPRAM 20 MG TAB PO SCH (09:33)
[2019-02-10] MEDS: LIDOCAINE 4%/MENTHOL 1% PATCH TD SCH (09:33)
[2019-02-10] MEDS: ENOXAPARIN 40 MG/0.4 ML SYR SC SCH (09:33)
[2019-02-10] MEDS: predniSONE 20 MG TAB PO SCH ×2 (09:34→17:24)
--- NOTE | 2019-02-10 11:20 | SOAPPROG ---
SOAP Progress Note Assessment/Plan: Assessment: Sally is a 73-year-old female who we are seeing for evaluation of eosinophilia. 1. Eosinophilia: She does have a workup that is pending for a clonal process including peripheral flow cytometry, bcr/ABL, PDGFR rearrangement, JAK2. She was started on prednisone yesterday. CBC today demonstrates complete normalization of her eosinophils. I did discuss with the hospitalist that that rapid of a correction seems a bit odd. I have recommended repeating a CBC today to confirm. If her eosinophil count truly did decrease then I would continue her on steroids and slowly taper. Her daughter states that she has been off and on steroids for quite some time for her pulmonary complaints. It is noted that she has a right-sided pleural effusion alongside pulmonary infiltrates concerning for eosinophilic pneumonitis. 2. Anemia, Macrocytic: B12 was normal. Hemoglobin decreased dramatically today. I have recommended repeating a CBC to confirm. If her hemoglobin is less than 7 would recommend transfusing. Although macrocytic, I would recommend obtaining iron studies as well. 3. Hypoxic respiratory failure 4. Pleural effusion 02/10/19 11:20 Subjective: Continues to have significant issues with shortness of breath and coughing this morning. She is anxious to be moved down to [place]. Otherwise tolerating a full diet. She denies any bleeding symptoms. Objective: Vital Signs Temp Pulse Resp BP Pulse Ox 36.8 C 93 16 117/59 L 91 L 02/10/19 08:00 02/10/19 09:51 02/10/19 09:51 02/10/19 08:00 02/10/19 09:51 Laboratory Results 02/10/19 03:23 02/10/19 03:23 02/09/19 02/10/19 02/11/19 05:59 05:59 05:59 Intake Total 240 200 Output Total 150 150 Balance 240 -150 50 PT 13.9 SEC (12.0-15.0) 02/07/19 17:10 INR 1.11 (0.83-1.16) 02/07/19 17:10 General: Conversant, oriented to person and place, sitting up eating breakfast HEENT: Nasal cannula in place oropharynx is clear Cardiovascular: Regular rate and rhythm 2/6 systolic murmur Pulmonary: Coarse breath sounds throughout Abdomen: Soft nontender nondistended Extremities: No cyanosis clubbing or edema Skin: No skin lesions ICD10 Worksheet Patient Problems: Problems Problem Status Onset Anemia Acute Leukocytosis Acute
--- NOTE | 2019-02-10 11:53 | HOSPPROG ---
Hospitalist Progress Note Assessment/Plan: DIAGNOSES: * Acute respiratory illness with cough and dyspnea, intermittent hypoxemia * Chest abnormalities on CT scan include mosaic pattern ground-glass opacities in the upper lobes of both lungs and a moderate right pleural effusion * Severe eosinophilia 37,000 with macrocytosis and normal red cell distribution width; appears of new onset * History of COPD chronic hypoxemic respiratory failure * Pulmonary hypertension is present, uncertain chronicity * History of hypertension * Chronic back pain with osteoporotic compression fractures and also with disc disease causing neural impingement * History of remote pulmonary embolus Is unclear whether the sudden rapid drop in eosinophils is actually real and whether this steroid medications could actually play a role in this. She did have some decrease in the eosinophils before the steroid were started. The sudden drop in hemoglobin also is on uncertain mechanism, question if due to the same issue causing her underlying macrocytic anemia or if she had some bleeding, or whether these decreases represent an artifact. We have decided to recheck her blood counts now to make sure that the changes are real. She does have some increased edema today, unclear whether this is from some right-sided heart failure or other mechanism, but she would benefit from some diuresis. PLANS: * Continue duonebs on schedule * Will add Lasix now * Recheck stat CBC now * Continue prednisone * Repeat chest x-ray to see if that appears to be improving at all * Continue to observe off antibiotics * I have ordered a total CPK to see if the high troponin is skeletal muscle origin * Continue to hold metformin as she had IV contrast * Fall risk precautions * Will place her on DVT prophylaxis at this point as we will not be doing bronchoscopy or bone marrow biopsy at this time Seen by me today on hospitalist rounds as well as multidisciplinary rounds I reviewed in detail today with Dr. 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: Sinus Exam: alert relaxed skin warm dry color ok resps not labored lungs some still with coarse breath sounds heart regular 1/6 systolic murmur abd soft nondistended nontender, bowel sounds present limbs warm, actually more edema of legs today iv site ok ECHOCARDIOGRAM: Hyper contractile left ventricle with normal wall motion, pulmonary hypertension is present at 50 and mild TR LAB DATA: Total LDH 964 Eosinophils a remarkably measure normal today, and total white blood cell count now down to 11,000 with a predominance of neutrophils which is likely due to the steroid Hemoglobin measures 6.9 today still macrocytic, with normal platelets Slight increase in glucose likely from her steroid, otherwise stable metabolic panel Slightly higher troponin 0.7, uncertain of the significance of this from a heart standpoint (CPK not checked yet) Still waiting on a number of tests to evaluate for possible primary hematologic cause of her illness Dr. Hand S added orders for iron studies and folate Objective: Vital Signs Temp Pulse Resp BP Pulse Ox 36.8 C 93 16 117/59 L 91 L 02/10/19 08:00 02/10/19 09:51 02/10/19 09:51 02/10/19 08:00 02/10/19 09:51 Laboratory Results 02/10/19 03:23 02/09/19 02/10/19 02/11/19 06:59 06:59 06:59 Intake Total 240 200 Output Total 300 Balance 240 -100 PT 13.9 SEC (12.0-15.0) 02/07/19 17:10 INR 1.11 (0.83-1.16) 02/07/19 17:10 ICD10 Worksheet Patient Problems: Problems Problem Status Onset Anemia Acute Leukocytosis Acute
[2019-02-10 12:00] LABS: PLATELET COUNT 301 10^3/uL (150-400)
[2019-02-10] MEDS: ACETAMINOPHEN 500 MG TAB PO PRN (12:45)
--- NOTE | 2019-02-10 13:22 | PDINTPN ---
Environmental Conflict Manager Progress Note Assessment/Plan: 73 F admitted with reported hypoxia, not found by EMS or ED, but found to have profound eosinophilia new from several weeks ago. Her workup included a chest CTA based on a history of PE but revealed diffuse bilateral infiltrates especially upper lobes with a right effusion. She has been seen by oncology, who suggested a BM biopsy but family members wanted only a non-invasive workup. No rash. * Abnormal CT- I suspect this represents eosinophilic infiltrate. Not certain what the significance is of her elevated IgE- she has no new allergies/ exposures and no history of asthma. ABPA is unlikely given lack of asthma or CF. Started systemic steroids 02/09 with dramatic improvement in eos count, though she started dropping without intervention. Her inability to provide substantial detail makes it difficult to interpret. Awaiting results of heme evaluation given patients family wishes for minimal invasion. * COPD/hypoxia- she is at her baseline O2 requirement. * will follow. 02/10/19 13:18 Subjective: no events Objective: Vital Signs Temp Pulse Resp BP Pulse Ox 37.1 C 99 16 127/67 H 92 02/10/19 12:00 02/10/19 12:00 02/10/19 09:51 02/10/19 12:00 02/10/19 12:00 Laboratory Results 02/10/19 11:20 02/10/19 03:23 02/09/19 02/10/19 02/11/19 05:59 05:59 05:59 Intake Total 240 200 Output Total 150 150 Balance 240 -150 50 PT 13.9 SEC (12.0-15.0) 02/07/19 17:10 INR 1.11 (0.83-1.16) 02/07/19 17:10 Physical Exam - Physical Exam General Appearance: alert, no apparent distress EENT: PERRL/EOMI Neck: supple Respiratory: lungs clear, normal breath sounds, No respiratory distress, No accessory muscle use Cardiac/Chest: regular rate, rhythm, No edema Abdomen: non-tender, soft, No distended Skin: normal color, warm/dry, No cyanosis Lymphatic: no adenopathy Extremities: No pedal edema Neuro/Psych: alert, normal mood/affect, cognition abnormalities, 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
[2019-02-10 14:39] LABS: CREATINE KINASE 37 IU/L (0-156)
[2019-02-10] MEDS ORDERED: BISACODYL 10 MG SUPP PR PRN (16:58)
[2019-02-10] MEDS ORDERED: MAGNESIUM HYDROXIDE 30 ML UDCUP PO PRN (16:58)
[2019-02-10] MEDS ORDERED: LACTULOSE 20 GM/30 ML UDCUP PO PRN (16:58)
[2019-02-10] MEDS: POLYETHYLENE GLYCOL 3350 17 GM PKT PO PRN (17:24)
[2019-02-11] MEDS: PATCH REMOVAL 1 EA PATCH TD SCH ×2 (01:22→20:29)
[2019-02-11] MEDS: IPRATROPIUM/ALBUTEROL 3 ML DEYVIAL IH SCH ×6 (01:57→22:30)
[2019-02-11 03:42] LABS: PLATELET COUNT 269 10^3/uL (150-400)
[2019-02-11] MEDS: SENNOSIDES/DOCUSATE SODIUM TAB PO SCH ×3 (04:59→20:29)
--- NOTE | 2019-02-11 08:29 | SOAPPROG ---
SOAP Progress Note Assessment/Plan: Assessment: 1) Eosinophilia 2) Macrocytic anemia 3) Hypoxemia with pulmonary infiltrates Plan: Overall she has improved since the addition of Prednisone. The underlying cause of her hematologic abnormalities remains unclear. Daughter/POA wishes a conservative workup and does not want to subject patient to a diagnostic bone marrow biopsy at this time which seems reasonable. Peripheral blood flow cytometry, JAK2 mutation analysis, and RT PCR for BCR/ABL have been sent and are all pending. B12/Folate/iron studies normal. Differential diagnosis for her clinical findings remains broad at this point ( Vasculitis versus primary marrow process versus inflammatory response). Agree with continuing steroids for now. These can be tapered over time. Disposition remains unclear. Patient hoping to return to live with her daughter in [place]. Follow up will be important if this happens, as she will need to establish with physicians near her daughter to continue the evaluation. Recommend PRBC transfusion today for her anemia. Subjective: Still coughing and requiring supplemental Oxygen. Denies pain or rash. Wants to leave the hospital. Objective: Vital Signs Temp Pulse Resp BP Pulse Ox 36.8 C 91 18 129/71 H 96 02/11/19 08:00 02/11/19 08:00 02/11/19 08:00 02/11/19 08:00 02/11/19 08:00 Laboratory Results 02/11/19 03:25 02/11/19 03:25 02/10/19 02/11/19 02/12/19 05:59 05:59 05:59 Intake Total 600 Output Total 150 150 Balance -150 450 PT 13.9 SEC (12.0-15.0) 02/07/19 17:10 INR 1.11 (0.83-1.16) 02/07/19 17:10 - Time Spent With Patient Time Spent With Patient: 20 minutes Physical Exam - Physical Exam General Appearance: alert, no apparent distress EENT: PERRL/EOMI Respiratory: rhonchi, No lungs clear Abdomen: non-tender, soft, No organomegaly Skin: normal color, No rash Neuro/Psych: normal mood/affect ICD10 Worksheet Patient Problems: Problems Problem Status Onset Anemia Acute Leukocytosis Acute
[2019-02-11] MEDS: predniSONE 20 MG TAB PO SCH ×2 (09:22→18:01)
[2019-02-11] MEDS: CITALOPRAM 20 MG TAB PO SCH (09:22)
[2019-02-11] MEDS: ENOXAPARIN 40 MG/0.4 ML SYR SC SCH (09:24)
[2019-02-11] MEDS: LIDOCAINE 4%/MENTHOL 1% PATCH TD SCH (09:32)
--- NOTE | 2019-02-11 11:46 | HOSPPROG ---
Hospitalist Progress Note Assessment/Plan: DIAGNOSES: * Acute respiratory illness with cough and dyspnea, intermittent hypoxemia * Chest abnormalities on CT scan include mosaic pattern ground-glass opacities in the upper lobes of both lungs and a moderate right pleural effusion, felt likely to be related to her eosinophilia but uncertain cause * Severe eosinophilia 37,000 uncertain etiology, resolved with prednisone quite rapidly * Severe macrocytic anemia and normal red cell distribution width; appears of new onset - ?of leukemia or other cause of her blood abnormalities -blood test workup in progress, family wishing to avoid bone marrow study so far * History of COPD chronic hypoxemic respiratory failure * Acute right-sided congestive heart failure, Pulmonary hypertension is present , uncertain chronicity * History of hypertension * Chronic back pain with osteoporotic compression fractures and also with disc disease causing neural impingement * History of remote pulmonary embolus I reviewed in detail with Dr. Juan Trevino at from Hematology and Dr. Babak Adrian from Infectious Disease today. She has had a very dramatic response in her eosinophil counts to the prednisone so far. However her hypoxemia, cough, lung exam and chest x-ray have not really improved so far. Encouragingly she is complaining of less shortness of breath. Her anemia continues to worsen. Again the cause of all of these abnormalities is unclear with numerous blood tests pending, and family so far hoping to avoid invasive procedures for diagnosis. PLANS: * Transfuse 1 unit red blood cells and recheck hemoglobin in the morning * Continue duonebs on schedule * Continue Lasix * Recheck stat CBC now * Continue prednisone, plan on likely discharging on 20 mg daily * Regarding diabetes she was doing well off of her metformin here, but now on steroid will start doing finger checks and may need to resume her metformin which had been stopped for CT scan * Fall risk precautions * DVT prophylaxis * She will need follow-up in Hematology Clinic upon discharge. If she does go back to [place] where she is from will need to be hooked up with 1 of the [facility] clinics near her home. * Further assessment on physical therapy today and will try and review with her daughter - the patient and family all live in [place], the patient was in local nursing facility here in my understanding was that this was a short-term jail rehab at visit. However it was unclear to me if this was correct and how long she was felt to need jail care. Have asked director of casework services to look into these questions. Question of discharge from here back to the [place] jail verses to a [place] jail or back to home at discharge. Seen by me today on hospitalist rounds as well as multidisciplinary rounds I reviewed in detail today with Dr. 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 Hemoglobin down to 6.6 Stable basic metabolic panel Anca studies are negative Elevations of IgG, IgA, IgE are noted Other tests for leukemia lymphoma and genetic abnormalities are all pending Objective: Vital Signs Temp Pulse Resp BP Pulse Ox 36.8 C 95 20 129/71 H 99 02/11/19 08:00 02/11/19 09:30 02/11/19 09:30 02/11/19 08:00 02/11/19 09:30 Laboratory Results 02/11/19 03:25 02/11/19 03:25 02/10/19 02/11/19 02/12/19 06:59 06:59 06:59 Intake Total 200 400 Output Total 300 Balance -100 400 PT 13.9 SEC (12.0-15.0) 02/07/19 17:10 INR 1.11 (0.83-1.16) 02/07/19 17:10 - Time Spent With Patient Time Spent with Patient: greater than 35 minutes Time Spent with Patient: Greater than 35 minutes spent on this patients care, greater than 50% of time spent counseling, educating, and coordinating care regarding the above mentioned plan. ICD10 Worksheet Patient Problems: Problems Problem Status Onset Anemia Acute Leukocytosis Acute
--- NOTE | 2019-02-11 12:04 | ASMTCMCOM ---
CM Note CM Note Notes: Pts case discussed in tx rounds. Pt is not ready to d/c at this time. Pt needs to offload more fluid. Updates sent to [facility]. CM to follow. Plan: Mag Lee [facility] Date Signed: 02/11/2019 12:03 PM Electronically Signed By:PLACIDO Martinez
--- NOTE | 2019-02-11 12:41 | SOAPPROG ---
SOAP Progress Note Assessment/Plan: Assessment/plan: 73 F admitted with reported hypoxia, not found by EMS or ED, but found to have profound eosinophilia new from several weeks ago. Her workup included a chest CTA based on a history of PE but revealed diffuse bilateral infiltrates especially upper lobes with a right effusion. She has been seen by oncology, who suggested a BM biopsy but family members wanted only a non-invasive workup. No rash. * Abnormal CT- I suspect this represents eosinophilic infiltrate. Not certain what the significance is of her elevated IgE- she has no new allergies/ exposures and no history of asthma. ABPA is unlikely given lack of asthma or CF. Started systemic steroids 02/09 with dramatic improvement in eos count, though she started dropping without intervention. Her inability to provide substantial detail makes it difficult to interpret. Awaiting results of heme evaluation given patients family wishes for minimal invasion. -consider repeat CT scan of the chest in a few days * Eosinophilia-improved with steroids. -hematology workup pending * COPD/hypoxia- she is at her baseline O2 requirement. * Dementia * VT prophylaxis Subjective: Sitting up eating lunch. Comfortable. No current complaints. Objective: Vital Signs Temp Pulse Resp BP Pulse Ox 36.6 C 92 18 151/78 H 95 02/11/19 12:00 02/11/19 12:00 02/11/19 12:00 02/11/19 12:00 02/11/19 12:00 Laboratory Results 02/11/19 03:25 02/11/19 03:25 02/10/19 02/11/19 02/12/19 05:59 05:59 05:59 Intake Total 600 Output Total 150 150 Balance -150 450 PT 13.9 SEC (12.0-15.0) 02/07/19 17:10 INR 1.11 (0.83-1.16) 02/07/19 17:10 - Time Spent With Patient Time Spent With Patient: 25 min of time spent with patient, over 1/2 involved with coordination of care counseling. Case discussed with hospitalist Physical Exam - Physical Exam General Appearance: alert EENT: PERRL/EOMI Neck: non-tender, supple Respiratory: rhonchi (Scattered), No respiratory distress, No wheezing Cardiac/Chest: normal peripheral pulses, regular rate, rhythm Peripheral Pulses: 2+: carotid (R), carotid (L), femoral (R), femoral (L), dorsalis-pedis (R), dorsalis-pedis (L) Abdomen: normal bowel sounds, non-tender, soft Pelvic Exam: deferred Rectal: deferred Skin: warm/dry Extremities: normal range of motion, non-tender Neuro/Psych: alert ICD10 Worksheet Patient Problems: Problems Problem Status Onset Anemia Acute Leukocytosis Acute
--- NOTE | 2019-02-11 16:18 | ASMTCMCOM ---
CM Note CM Note Notes: RALF spoke to pts daughter Maya (P#: [phone]). She is requesting that pt is transferred to a [facility] SNF. RALF communicated this to Lana at [employer]. Lana reports that [facility] SN[facility] has an opening. Referral sent there. CM to follow. Date Signed: 02/11/2019 04:17 PM Electronically Signed By:PLACIDO Martinez
[2019-02-11] MEDS ORDERED: BENZONATATE 100 MG CAP PO PRN (19:16)
[2019-02-11] MEDS ORDERED: ONDANSETRON DISINTEGRATING 4 MG TAB PO PRN (21:18)
[2019-02-12] MEDS: IPRATROPIUM/ALBUTEROL 3 ML DEYVIAL IH SCH ×3 (02:19→10:15)
[2019-02-12] MEDS: ENOXAPARIN 40 MG/0.4 ML SYR SC SCH (09:04)
[2019-02-12] MEDS: CITALOPRAM 20 MG TAB PO SCH (09:04)
[2019-02-12] MEDS: SENNOSIDES/DOCUSATE SODIUM TAB PO SCH ×2 (09:05→19:53)
[2019-02-12] MEDS: LIDOCAINE 4%/MENTHOL 1% PATCH TD SCH (09:07)
[2019-02-12] MEDS: predniSONE 20 MG TAB PO SCH ×2 (09:09→17:55)
[2019-02-12 09:55] LABS: PLATELET COUNT 265 10^3/uL (150-400)
--- NOTE | 2019-02-12 13:39 | SOAPPROG ---
SOAP Progress Note Assessment/Plan: Assessment/plan: * Abnormal CT- I suspect this represents eosinophilic infiltrate. Not certain what the significance is of her elevated IgE- she has no new allergies/ exposures and no history of asthma. ABPA is unlikely given lack of asthma or CF. Started systemic steroids 02/09 with dramatic improvement in eos count, though she started dropping without intervention. Her inability to provide substantial detail makes it difficult to interpret. Awaiting results of heme evaluation given patients family wishes for minimal invasion. -continues to improve clinically * Eosinophilia-improved with steroids. -hematology workup pending * COPD/hypoxia- she is at her baseline O2 requirement. * Dementia * VT prophylaxis Subjective: Sitting up in chair. Resting comfortably. Breathing easily. No current complaints Objective: Vital Signs Temp Pulse Resp BP Pulse Ox 36.7 C 88 16 142/78 H 95 02/12/19 11:00 02/12/19 11:00 02/12/19 11:00 02/12/19 11:00 02/12/19 11:00 Laboratory Results 02/12/19 09:46 02/11/19 03:25 02/11/19 02/12/19 02/13/19 05:59 05:59 05:59 Intake Total 600 1830 Output Total 150 250 Balance 450 1580 PT 13.9 SEC (12.0-15.0) 02/07/19 17:10 INR 1.11 (0.83-1.16) 02/07/19 17:10 - Time Spent With Patient Time Spent With Patient: 25 min of time spent with patient, over 1/2 involved with coordination of care or counseling. Physical Exam - Physical Exam General Appearance: alert, no apparent distress EENT: PERRL/EOMI Neck: non-tender, supple Respiratory: crackles (Few basilar), No respiratory distress, No wheezing Cardiac/Chest: normal peripheral pulses, regular rate, rhythm Abdomen: normal bowel sounds, non-tender, soft Pelvic Exam: deferred Rectal: deferred Skin: warm/dry Extremities: non-tender Neuro/Psych: alert ICD10 Worksheet Patient Problems: Problems Problem Status Onset Anemia Acute Leukocytosis Acute
--- NOTE | 2019-02-12 15:41 | HOSPPROG ---
Hospitalist Progress Note Assessment/Plan: DIAGNOSES: * Acute respiratory illness with cough and dyspnea, intermittent hypoxemia * Chest abnormalities on CT scan include mosaic pattern ground-glass opacities in the upper lobes of both lungs and a moderate right pleural effusion, felt likely to be related to her eosinophilia but uncertain cause * Severe eosinophilia 37,000 uncertain etiology, resolved with prednisone quite rapidly * Severe macrocytic anemia and normal red cell distribution width; appears of new onset - ?of leukemia or other cause of her blood abnormalities -blood test workup in progress, family wishing to avoid bone marrow study so far * History of COPD chronic hypoxemic respiratory failure * Acute right-sided congestive heart failure, Pulmonary hypertension is present , uncertain chronicity * History of hypertension * Chronic back pain with osteoporotic compression fractures and also with disc disease causing neural impingement * History of remote pulmonary embolus PLANS: * S/p 1 unit red blood cells on 02/11 with improvement of H/H * Continue duonebs on schedule * Continue prednisone, plan on likely discharging on 20 mg BID * Regarding diabetes she was doing well off of her metformin here, but now on steroid will start doing finger checks and may need to resume her metformin which had been stopped for CT scan * Fall risk precautions * DVT prophylaxis * She will need follow-up in Hematology Clinic upon discharge. If she does go back to [place] where she is from will need to be hooked up with 1 of the [facility] clinics near her home. * Question of discharge from here back to the [place] half-way verses to a [place] half-way or back to home at discharge. Objective: Vital Signs Temp Pulse Resp BP Pulse Ox 36.7 C 78 19 157/74 H 98 02/12/19 14:59 02/12/19 14:59 02/12/19 14:59 02/12/19 14:59 02/12/19 14:59 Laboratory Results 02/12/19 09:46 02/11/19 03:25 02/11/19 02/12/19 02/13/19 05:59 05:59 05:59 Intake Total 600 1830 Output Total 150 250 Balance 450 1580 PT 13.9 SEC (12.0-15.0) 02/07/19 17:10 INR 1.11 (0.83-1.16) 02/07/19 17:10 ICD10 Worksheet Patient Problems: Problems Problem Status Onset Anemia Acute Leukocytosis Acute
--- NOTE | 2019-02-12 16:04 | ASMTCMCOM ---
CM Note CM Note Notes: [facility] is in the process of evaluating this referral. Regardless of the decision at [facility], pt can d/c back to [place] when medically stable and [place] can continue efforts on transitioning pt to a [facility] SNF. [facility] is questioning if pt requires a locked unit. CM to follow. Plan: [facility] [place] LTC vs another SNF in [place] Date Signed: 02/12/2019 04:03 PM Electronically Signed By:PLACIDO Martinez
[2019-02-12] MEDS: ACETAMINOPHEN 500 MG TAB PO PRN (16:31)
[2019-02-12] MEDS: POLYETHYLENE GLYCOL 3350 17 GM PKT PO PRN (17:55)
[2019-02-12] MEDS: IPRATROPIUM/ALBUTEROL 3 ML DEYVIAL IH PRN (21:34)
[2019-02-12] MEDS: PATCH REMOVAL 1 EA PATCH TD SCH (21:54)
[2019-02-13] MEDS: IPRATROPIUM/ALBUTEROL 3 ML DEYVIAL IH PRN (05:46)
[2019-02-13] MEDS: ENOXAPARIN 40 MG/0.4 ML SYR SC SCH (10:28)
[2019-02-13] MEDS: SENNOSIDES/DOCUSATE SODIUM TAB PO SCH (10:28)
[2019-02-13] MEDS: predniSONE 20 MG TAB PO SCH (10:28)
[2019-02-13] MEDS: LIDOCAINE 4%/MENTHOL 1% PATCH TD SCH (10:30)
[2019-02-13] MEDS: CITALOPRAM 20 MG TAB PO SCH (10:35)
--- NOTE | 2019-02-13 12:42 | SOAPPROG ---
SOAP Progress Note Assessment/Plan: Assessment/plan: * Abnormal CT- I suspect this represents eosinophilic infiltrate. Not certain what the significance is of her elevated IgE- she has no new allergies/ exposures and no history of asthma. ABPA is unlikely given lack of asthma or CF. Started systemic steroids 02/09 with dramatic improvement in eos count, though she started dropping without intervention. Her inability to provide substantial detail makes it difficult to interpret. -continues to improve clinically -would taper steroids over 2 weeks time * Eosinophilia-improved with steroids. * COPD/hypoxia- she is at her baseline O2 requirement. * Dementia * VT prophylaxis * Disposition-to detention soon Subjective: Sitting up in chair. Resting comfortably. No current complaints. Objective: Vital Signs Temp Pulse Resp BP Pulse Ox 37.0 C 78 18 138/61 H 96 02/13/19 10:26 02/13/19 10:26 02/13/19 10:26 02/13/19 10:26 02/13/19 10:26 Laboratory Results 02/13/19 05:08 02/11/19 03:25 02/12/19 02/13/19 02/14/19 05:59 05:59 05:59 Intake Total 1830 1580 Output Total 250 500 200 Balance 1580 1080 -200 PT 13.9 SEC (12.0-15.0) 02/07/19 17:10 INR 1.11 (0.83-1.16) 02/07/19 17:10 - Time Spent With Patient Time Spent With Patient: 25 min of time spent with patient, over 1/2 involved coordination of care counseling. Case discussed with hospitalist Physical Exam - Physical Exam General Appearance: alert, no apparent distress EENT: PERRL/EOMI Neck: non-tender, supple Respiratory: crackles (Few basilar), No respiratory distress, No wheezing Cardiac/Chest: normal peripheral pulses, regular rate, rhythm Abdomen: normal bowel sounds, non-tender, soft Pelvic Exam: deferred Rectal: deferred Skin: normal color, warm/dry Extremities: non-tender Neuro/Psych: alert ICD10 Worksheet Patient Problems: Problems Problem Status Onset Anemia Acute Leukocytosis Acute
--- NOTE | 2019-02-13 13:03 | PDDCSUM ---
Discharge Summary Discharge Summary: Date of Admission: 02/07/2019 Date of Discharge: 02/13/2019 Consults: Pulmonology, Hematology Procedures: CXR, CTA Chest, CT Abd, Lumbar Spine MRI Followup: Pulmonology, Hematology Hospital Course Problem List: DIAGNOSES: * Acute respiratory illness with cough and dyspnea, intermittent hypoxemia * Chest abnormalities on CT scan include mosaic pattern ground-glass opacities in the upper lobes of both lungs and a moderate right pleural effusion, felt likely to be related to her eosinophilia but uncertain cause * Severe eosinophilia 37,000 uncertain etiology, resolved with prednisone quite rapidly * Severe macrocytic anemia and normal red cell distribution width; appears of new onset - ?of leukemia or other cause of her blood abnormalities -blood test workup in progress, family wishing to avoid bone marrow study so far * History of COPD chronic hypoxemic respiratory failure * Acute right-sided congestive heart failure, Pulmonary hypertension is present , uncertain chronicity * History of hypertension * Chronic back pain with osteoporotic compression fractures and also with disc disease causing neural impingement * History of remote pulmonary embolus PLANS: * S/p 1 unit red blood cells on 02/11 with improvement of H/H * Continue duonebs * Continue prednisone, discharging on 40 mg daily, taper over next 2 weeks per pulmonology, referral placed for Dr. Claire * Fall risk precautions * DVT prophylaxis * She will need follow-up in Hematology Clinic upon discharge, referral placed for Dr. Hand. If she does go back to [place] where she is from will need to be hooked up with 1 of the [facility] clinics near her home. Time spent on discharge was >35 minutes with >50% of time spent on patient education and counseling.
--- NOTE | 2019-02-13 13:05 | PDIAF ---
- Diagnosis Diagnosis: Eisonphilia Code Status: Do Not Resuscitate - Medication Management Discharge Medications: electronically signed and located in the Home Medication List. - Orders Services needed: Home Care, Registered Nurse, Physical Therapy, Occupational Therapy Home Care Face to Face: I certify that this patient was under my care and that I had the required [id number] encounter meeting the encounter requirements on the discharge day. My findings support the fact that the patient is homebound as defined in Home Care Face to Face Continued: CMS Chapter 7 Medicare Benefits Manual 30.1.1 , The condition of the patient is such that there exists a normal inability to leave home and consequently, leaving home would require a considerable and taxing effort. Additional Instructions: Please followup with Service Cashier (Lung doctor) Dr. Claire, [facility] Pulmonology's office phone number is . - Follow Up Care Current Providers and Referrals: Lanre Hand MD [Medical Doctor] - Patient,NotPresent [Unknown] - As per Instructions Misael Claire MD [Medical Doctor] -
--- NOTE | 2019-02-13 13:52 | ASMTDCNOTE ---
Case Management Discharge Discharge Order Complete? Answers: Yes Patient to Obtain Answers: Other Notes: [facility] Medications Transportation Arranged Answers: Other Notes: [facility] w/c transpor t EMTALA Complete Answers: No Case Management Transport Answers: No Form Complete Faxed Final Orders Answers: Yes Agency/Facility Transfer Answers: Yes Report Printed & Faxed to Receiving Agency Family Notified Answers: Yes Discharge Comments Notes: Pts case discussed w/ Dr. Waddell and NICHOLAS Pennington. Pt is being d/c'd today back to [facility]. Pt is medically stable to d/c. DC orders sent. Lana at [facility] will continue to work on getting pt placed in a facility closer to [place], per the request of family. CM notified pts daughter Maya of the d/c and Lana will continue to work on finding alternative placement. New referral sent to [facility]. Aditi will call to give report. CM available for changes. Plan: [facility] Date Signed: 02/13/2019 01:52 PM Electronically Signed By:PLACIDO Martinez
--- NOTE | 2019-02-13 13:53 | ASDISCHSUM ---
Discharge Information Plan Status:SNF Medically Cleared to Leave:02/13/2019 Discharge Date:02/13/2019 CM D/C Disposition: ADT D/C Disposition: Projected Discharge Date:02/13/2019 11:00 AM Transportation at D/C: Discharge Delay Reason: Follow-Up Date:02/13/2019 11:00 AM Discharge Slot: Final Diagnosis: Placement Information Referral Type:*Jail/SNF Referral ID:[id number] Provider Name:[facility] Address 1:[address] Address 2: City:[place] Selection Factors: State:[place] Patient Contact Information Contact Name:LANA Relationship:Daughter Address:[address] City:[place] Alternate Phone: State/Zip Code:[place] [address] Email: Financial Information Financial Class:Medicare Primary Plan Desc:MEDICARE INPATIENT Primary Plan Number:[id number] Secondary Plan Desc:[place] Secondary Plan Number:[id number] Assessment Information LACE LACE Acuity / Level of Answers: Yes Care: Did the patient have an inpatient admission? Comorbidities - select Answers: Chronic pulmonary disease all that apply Dementia Diabetes (uncontrolled or controlled) Opioid dependence / Chronic pain Other Notes: HLD; HTN; PE # of Emergency department Answers: 1-2 visits in the last 6 months Score: 15 Date Signed: 02/08/2019 09:21 AM Electronically Signed By:Kelsey Murphy [facility] CM Progress Note CM Note CM Note Notes: 02/08/2019 Case Management Note Discussed in rounds. Pt admitted for elevated troponin. Pt to have CT of abdomen today. Pt has history of dementia. Pt resides at [facility]. Faxed updates via [employer], [employer] and discussed w/Lana from [employer] [phone]. Requested MDPOA paperwork from [facility]. Lana provided copy of MDPOA from [facility] that indicates pt daughter Jovana Trimble is Alternate #1 MDPOA [phone]. Pt daughter Maya Trimble [phone] is alternate #2. Case Management d/c poc: return to [facility] Case Management to follow. Date Signed: 02/08/2019 11:54 AM Electronically Signed By:Mary Carmona RN [facility] RALF Progress Note CM Note CM Note Notes: Pts case discussed in tx rounds. Pt is not ready to d/c at this time. Pt needs to offload more fluid. Updates sent to [facility]. CM to follow. Plan: [facility] Date Signed: 02/11/2019 12:03 PM Electronically Signed By:PLACIDO Martinez [facility] RALF Progress Note CM Note CM Note Notes: [facility]AL[facility] spoke to pts daughter Maya (P#: [phone]). She is requesting that pt is transferred to a [facility]. CM communicated this to Lana at [facility]. Lana reports that [facility] has an opening. Referral sent there. CM to follow. Date Signed: 02/11/2019 04:17 PM Electronically Signed By:PLACIDO Martinez [facility] CM Progress Note CM Note CM Note Notes: [facility] is in the process of evaluating this referral. Regardless of the decision at [facility], pt can d/c back to [facility] when medically stable and [facility] can continue efforts on transitioning pt to a [facility] SNF. [facility] is questioning if pt requires a locked unit. CM to follow. Plan: [facility] vs another SNF in [place] Date Signed: 02/12/2019 04:03 PM Electronically Signed By:PLACIDO Martinez Case Management Discharge Plan Note Case Management Discharge Discharge Order Complete? Answers: Yes Patient to Obtain Answers: Other Notes: [facility] Medications Transportation Arranged Answers: Other Notes: [facility] w/c nick [facility] Complete Answers: No Case Management Transport Answers: No Form Complete Faxed Final Orders Answers: Yes Agency/Facility Transfer Answers: Yes Report Printed & Faxed to Receiving Agency Family Notified Answers: Yes Discharge Comments Notes: Pts case discussed w/ Dr. Waddell and NICHOLAS Pennington. Pt is being d/c'd today back to [facility]. Pt is medically stable to d/c. DC orders sent. Lana at [facility] will continue to work on getting pt placed in a facility closer to [place], per the request of family. CM notified pts daughter Maya of the d/c and Lana will continue to work on finding alternative placement. New referral sent to [facility]. Pen[facility] will call to give report. CM available for changes. Plan: [facility] Date Signed: 02/13/2019 01:52 PM Electronically Signed By:PLACIDO Martinez Intervention Information
[2019-02-13 14:21] VITALS: BP 130/72
== END 2019-02-13 16:08 | DRG 815 ==
LOC: EDUNIT# → F2W 15:50 → OBSVTOIN 16:52
PROVIDERS: ADMIT Student in an Organized Health Care Education/Training Program; ATTEND Student in an Organized Health Care Education/Training Program
PROC: 30233N1 Transfusion of Nonautologous Red Blood Cells into Peripheral Vein, Percutaneous Approach (ICD-10-PCS; principal; 2019-02-11)
DX: D72.1 Eosinophilia (principal); J90 Pleural effusion, not elsewhere classified; J96.11 Chronic respiratory failure with hypoxia; M80.08XD Age-related osteoporosis with current pathological fracture, vertebra(e), subsequent encounter for fracture with routine healing; R91.8 Other nonspecific abnormal finding of lung field; D53.9 Nutritional anemia, unspecified; J44.9 Chronic obstructive pulmonary disease, unspecified; I11.0 Hypertensive heart disease with heart failure; I50.813 Acute on chronic right heart failure; I27.20 Pulmonary hypertension, unspecified; G89.29 Other chronic pain; G30.9 Alzheimer's disease, unspecified; F02.80 Dementia in other diseases classified elsewhere, unspecified severity, without behavioral disturbance, psychotic disturbance, mood disturbance, and anxiety; E11.9 Type 2 diabetes mellitus without complications; E78.5 Hyperlipidemia, unspecified; K21.9 Gastro-esophageal reflux disease without esophagitis; Z96.652 Presence of left artificial knee joint; Z86.711 Personal history of pulmonary embolism; Z79.84 Long term (current) use of oral hypoglycemic drugs; Z98.1 Arthrodesis status
CPT/HCPCS: 81439-90; 82607-90; 82784-90; 83520-90; 83625-90; 84484-ER; J0456; J0696; J1650; J2060; J7512; P9016; Q9967